=== PATIENT | male | born 1990 | race American Indian/Alaskan Native ===

== ENCOUNTER 2017-12-06 08:10 | Inpatient (IN) | payer MEDICAID, OTHER ==
--- NOTE | 2017-12-06 08:40 | C.PDOC ---
History Of Present Illness 27 year old male presents to ED requesting detox from heroin. Notes using heroin intravenously, last used 2 days ago. Pt also states that he tried to commit suicide last night by overdosing on unknown "pills". Otherwise, denies homicidal ideation, hallucinations, or any active physical complaints at this time. Time Seen by Provider: 12/06/17 08:15 Chief Complaint (Nursing): Substance Abuse History Per: Patient History/Exam Limitations: no limitations Onset/Duration Of Symptoms: Days Current Symptoms Are (Timing): Still Present Suicide/Self Injury Attempted (Context): Ingestion Severity: None Pain Scale Rating Of: 0 Associated Symptoms: Suicidal Thoughts Involuntary Hold By: None Recent travel outside of the [place]: No Additional History Per: Patient Past Medical History Reviewed: Historical Data, Nursing Documentation, Vital Signs Vital Signs: Last Vital Signs Temp 98.4 F 12/06/17 10:49 Pulse 69 12/06/17 10:49 Resp 17 12/06/17 12:08 BP 132/81 12/06/17 10:49 Pulse Ox 100 12/06/17 10:49 - Medical History PMH: No Chronic Diseases Family History: States: Unknown Family Hx - Social History Hx Alcohol Use: No Hx Substance Use: Yes (Snorts Heroin) Review Of Systems Except As Marked, All Systems Reviewed And Found Negative. Constitutional: Negative for: Fever, Chills Cardiovascular: Negative for: Chest Pain, Palpitations Respiratory: Negative for: Cough, Shortness of Breath Psych: Positive for: Suicidal ideation Physical Exam - Physical Exam Appears: Non-toxic, No Acute Distress Skin: Normal Color, Warm, Dry Head: Atraumatic, Normacephalic Eye(s): bilateral: Normal Inspection Oral Mucosa: Moist Cardiovascular: Rhythm Regular, No Murmur Respiratory: Normal Breath Sounds, No Rales, No Rhonchi, No Wheezing Gastrointestinal/Abdominal: Soft, No Tenderness Extremity: Normal ROM, No Deformity Neurological/Psych: Oriented x3, Normal Speech ED Course And Treatment - Laboratory Results Result Diagrams: 12/06/17 09:16 12/06/17 09:16 Lab Interpretation: Normal O2 Sat by Pulse Oximetry: 98 Pulse Ox Interpretation: Normal Progress Note: Case discussed and patient evaluated by child and family services worker who requests admission to Dr Carreon Reassessment Condition: Unchanged Medical Decision Making Medical Decision Making: Plan: Blood work Urinalysis Disposition Discussed With : Cullen Carreon Doctor Will See Patient In The: Hospital - Disposition Disposition: HOSPITALIZED Disposition Time: 13:00 Condition: STABLE - POA Present On Arrival: None - Clinical Impression Clinical Impression: Depression, Drug abuse - PA / HAND TWISTER / Resident Statement MD/DO has reviewed & agrees with the documentation as recorded. - Scribe Statement The provider has reviewed the documentation as recorded by the Scribe Schuyler Cali All medical record entries made by the Scribe were at my direction and personally dictated by me. I have reviewed the chart and agree that the record accurately reflects my personal performance of the history, physical exam, medical decision making, and the department course for this patient. I have also personally directed, reviewed, and agree with the discharge instructions and disposition. Decision To Admit - Pt Status Changed To: Hospital Disposition Of: Inpatient - Admit Certification Admit to Inpatient:: After my assessment, the patient will require hospitalization for at least two midnights. This is because of the severity of symptoms shown, intensity of services needed, and/or the medical risk in this patient being treated as an outpatient. - InPatient: Physician Admission Certification: I certify that this patient requires 2 or more midnights of care for the following reason:: Depression - . Bed Request Type: Psychiatry Admitting Physician: Cullen Carreon Patient Diagnosis: Depression
[2017-12-06 09:23] LABS: BASO % 0.6 % (0.0-2.0); EOS # 0.1 K/uL (0.0-0.7); EOS % 1.5 % (0.0-4.0); LYMPH % 18.8 % (20.0-40.0); MEAN CELL VOLUME 92.7 fL (80.0-94.0); MEAN CORPUSCULAR HEMOGLOBIN 32.7 pg (27.0-31.0); MEAN CORPUSCULAR HGB CONC 35.3 g/dL (33.0-37.0); MONO # 0.4 K/uL (0.0-0.8); MONO % 7.6 % (0.0-10.0); NEUT % 71.5 % (50.0-75.0); RBC 4.59 Mil/uL (4.40-5.90); RED CELL DISTRIBUTION WIDTH 13.7 % (11.5-14.5); WHITE BLOOD COUNT 5.6 K/uL (4.8-10.8)
[2017-12-06 09:38] LABS: SQUAMOUS EPITHIAL < 1 /hpf (0-5); URINE BACTERIA OCC (<OCC); URINE BILIRUBIN NEGATIVE (NEGATIVE); URINE BLOOD NEGATIVE (NEGATIVE); URINE CLARITY Clear (Clear); URINE COLOR Yellow (YELLOW); URINE GLUCOSE (UA) NORMAL (Normal); URINE LEUKOCYTE ESTERASE NEG Leu/uL (Negative); URINE NITRATE NEGATIVE (NEGATIVE); URINE PROTEIN NEGATIVE (NEGATIVE); URINE UROBILINOGEN NORMAL mg/dL (0.2-1.0)
[2017-12-06 09:41] LABS: ALB/GLOB RATIO 1.3 (1.0-2.1); ALBUMIN 4.8 g/dL (3.5-5.0); ALT/SGPT 34 U/L (21-72); AST/SGOT 30 U/L (17-59); BLOOD UREA NITROGEN 9 mg/dL (9-20); CALCIUM 9.9 mg/dl (8.6-10.4); GFR AFRICAN-AMERICAN > 60; GFR NON-AFRICAN AMERICAN > 60
[2017-12-06 09:50] LABS: BARBITURATES, UR NEGATIVE (NEGATIVE); BENZODIAZEPINES, UR NEGATIVE (NEGATIVE); PHENCYCLIDINE, UR NEGATIVE (NEGATIVE)
[2017-12-06 09:55] LABS: OPIATES, UR POSITIVE (NEGATIVE)
--- NOTE | 2017-12-06 12:04 | PCM.BM ---
<Pam Fang - Last Filed: 12/06/17 12:00> Treatment Plan Problems - Problems identified on initial assessmt Depression Date Initiated: 12/06/17 Time Initiated: 12:01 Assessment reference: NA Status: Active Substance Abuse Date Initiated: 12/06/17 Time Initiated: 12:01 Assessment reference: NA Status: Active Treatment assets and liabiliti Patient Assests: adapts well, cooperative, ADL independent, physically healthy, negotiates basic needs, cognitively intact, good interpersonal skills Patient Liabilities: live alone (lives with mother now Homeless), financial problems, poor support system, substance abuse (Heroin 2-3 bunble snorts and THC ), medical problems (None) - Milieu Protocol Maintain good personal hygiene: daily Encourage regular showers, daily Remind patient to perform daily oral care, other Assist patient to perform ADL's (Self) Conduct patient checks and document Observation sheet: Q15 minutes (For safety) Maintain personal safety: every shift Educate patient to report safety concerns to staff, every shift Monitor environment for contraband/sharps Medication safety: Monitor for expected outcome, potential side effects: every shift, Assess barriers to learning: every shift, Assess readiness for medication education: every shift <Virgie Sanchez - Last Filed: 12/08/17 11:04> Family Contact Family involvement: Famliy/SO not involved - Goals for Treatment Patient goals for treatment: "I want to go to rehab." Discharge/Continuing Care - Education Needs Education Needs: Patient Medication, Patient Coping Skills - Discharge Discharge Criteria: Tolerates medication w/o severe side effects, Reduction of target symptoms Discharge to:: Substance Abuse Rehab - Treatment Team Participation Discussed with Family/SO: No Was Patient/Family/SO present at Treatment Team Meeting: Yes
[2017-12-06] MEDS ORDERED: Aluminum Hydroxide/Magnesium Hydroxide Susp (30 mL) PO PRN (20:54)
--- NOTE | 2017-12-06 20:54 | PCM.PSYCH ---
Initial Psychiatric Evaluation - Initial Psychiatric Evaluation Type of Admission: Voluntary Legal Status: Capacity Chief Complaint (in patient's own words): I was feeling depressed and suicidal.' History of Present Illness and Precipitating Events: Patient is a 27-year-old -[place] male, who came to the ED with depressed mood and suicidal ideation with plan to overdose on pills. As per the ED charts, pt stated that ''two days ago he intentionally overdosed on 10 bags of heroin and yesterday ingested 10 sleeping pills and two shots of alcohol, both suicide attempts. Patient reported after ingesting sleeping pills and alcohol he woke up this morning and brought himself to the ED. On a daily basis he reported using 2-3 bundles the past 4 months both intravenously and intranasally. He reported drinking two small bottles of alcohol weekly. He had one prior detox admission at [facility] (formally known as [facility]) in 2017 with 4 months of sobriety. He identified hanging with the wrong people as his trigger. While sober, he was living with his mother, however, after replapsing she kicked him out and hes been homeless since. Patient denied psych history and psych hospitalizations. He reported two prior arrests in 2017 for theft and possession of Xanax. '' Patient remained isolated, withdrawn and depressed. He reports feelings of hopelessness and helplessness and remained tearful throughout the interview. He reports withdrawal symptoms from heroin including back and joint pains, nausea and sweating. He reports current suicidal ideation but denies any homicidal ideation. He denies any AVH or any delusions. PMH: None reported Current Medications: Active Medications Generic Name Dose Route Start Last Admin Trade Name Freq PRN Reason Stop Dose Admin Benztropine Mesylate 2 mg 12/06/17 11:03 Cogentin PO Q6 PRN Extra Pyramidal Symptoms Haloperidol 5 mg 12/06/17 11:03 Haldol PO Q8 PRN Moderate Agitation Lorazepam 1 mg 12/06/17 11:03 12/06/17 17:10 Ativan PO 1 mg Q6 PRN Administration Anxiety Pneumococcal Polyvalent Vaccine 0.5 ml 12/09/17 10:00 Pneumovax 23 Vaccine IM 12/09/17 10:01 .ONCE ONE Trazodone HCl 50 mg 12/06/17 22:00 Desyrel PO HS [facility] Past Psychiatric History - Past Psychiatric History Previous Treatment History: None Pertinent Medical Hx (Current Medical&Sleep Prob, Allergies): Allergies Allergy/AdvReac Type Severity Reaction Status Date / Time No Known Allergies Allergy Verified 12/06/17 08:19 No Known Home Med 12/06/17 Review of Systems - Review of Systems All systems: reviewed and no additional remarkable complaints except - Psychiatric Psychiatric: Anxiety, Irritability, Suicidal Ideation Mental Status Examination - Personal Presentation Personal Presentation: Looks stated age - Affect Affect: Constricted, Depressed - Motor Activity Motor Activity: Calm - Reliability in Providing Information Reliability in Providing Information: Fair - Speech Speech: Organized - Mood Mood: Depressed, Anxious - Formal Thought Process Formal Thought Process: No Impairment - Obsessions/Compulsions Obsessions: No Compulsions: No - Cognitive Functions Orientation: Person, Place, Situation, Time Sensorium: Alert Attention/Concentration: Attentive Abstract Thinking: [place] Estimate of Intelligence: Below average Judgement: Imparied, as evidence by: Poor judgement, Imparied, as evidence by: Lack of insight into illness - Risk Risk: Suicidal, Withdrawal, Diminished functioning - Limitations Limitations: Living alone DSM 5 DX - DSM 5 DSM 5 Diagnosis: Major depressive disorder recurrent severe without psychotic features Opioid use disorder severe Opioid withdrawal Alcohol use disorder moderate - Recommended/Plan of Treatment Treatment Recommendations and Plan of Treatment: Major depressive disorder recurrent severe without psychotic features -CBT -Psychoeducation -Supportive therapy, group therapy, individual therapy -Neurontin 100 mg by mouth 3 times a day -Trazodone 50 mg by mouth daily at bedtime -Celexa will be started and dose will be maximized Opioid use disorder severe -CBT -Psychoeducation -Supportive therapy, individual therapy -Use [place] for abstinence Opioid withdrawal -CBT -Psychoeducation -Supportive therapy, individual therapy -Clonidine when necessary -Start methadone taper -Start prn meds Alcohol use disorder moderate -Monitor signs and symptoms -Use [place] for abstinence - Smoking Cessation Smoking Cessation Initiated: No
--- NOTE | 2017-12-07 11:50 | PCM.PYCHPN ---
Psychiatric Progress Note - Psychiatric Progress Note Patient seen today, length of contact: 15 min Medication Change: Yes Medical Record Reviewed: Yes Mental Status Examination - Cognitive Function Orientation: Person, Place, Situation, Time Memory: Intact Attention: WNL Concentration: Poor Association: WNL Fund of Knowledge: Poor - Mood Mood: Depressed, Anxious - Affect Affect: Constricted - Speech Speech: Soft - Formal Thought Process Formal Thought Process: No Impairment - Suicidal Ideation Suicidal Ideation: No - Homicidal Ideation Homicidal Ideation: No Goal/Treatment Plan - Goal/Treatment Plan Need for Continued Stay: Severe depression anxiety, Severe functional impairment Progress Toward Problem(s) and Goals/Treatment Plan: Major depressive disorder recurrent severe without psychotic features -CBT -Psychoeducation -Supportive therapy, group therapy, individual therapy -Neurontin 100 mg by mouth 3 times a day -Trazodone 50 mg by mouth daily at bedtime -Celexa will be started and dose will be maximized Opioid use disorder severe -CBT -Psychoeducation -Supportive therapy, individual therapy -Use [place] for abstinence Opioid withdrawal -CBT -Psychoeducation -Supportive therapy, individual therapy -Clonidine when necessary -Start methadone taper -Start prn meds Alcohol use disorder moderate -Monitor signs and symptoms -Use [place] for abstinence
--- NOTE | 2017-12-08 11:04 | PCM.PYCHPN ---
Psychiatric Progress Note - Psychiatric Progress Note Patient seen today, length of contact: 15 min Medication Change: Yes Medical Record Reviewed: Yes Mental Status Examination - Cognitive Function Orientation: Person, Place, Situation, Time Memory: Intact Attention: WNL Concentration: Poor Association: WNL Fund of Knowledge: Poor - Mood Mood: Depressed, Anxious - Affect Affect: Constricted - Speech Speech: Soft - Formal Thought Process Formal Thought Process: No Impairment - Suicidal Ideation Suicidal Ideation: No - Homicidal Ideation Homicidal Ideation: No Goal/Treatment Plan - Goal/Treatment Plan Need for Continued Stay: Severe depression anxiety, Severe functional impairment Progress Toward Problem(s) and Goals/Treatment Plan: Major depressive disorder recurrent severe without psychotic features -CBT -Psychoeducation -Supportive therapy, group therapy, individual therapy -Neurontin 100 mg by mouth 3 times a day -Trazodone 50 mg by mouth daily at bedtime -Celexa will be started and dose will be maximized Opioid use disorder severe -CBT -Psychoeducation -Supportive therapy, individual therapy -Use [place] for abstinence Opioid withdrawal -CBT -Psychoeducation -Supportive therapy, individual therapy -Clonidine when necessary -Methadone taper -prn meds Alcohol use disorder moderate -Monitor signs and symptoms -Use [place] for abstinence - Smoking Cessation Smoking Cessation Initiated: No
[2017-12-09 06:10] VITALS: O2SAT 100
[2017-12-09] MEDS ORDERED: Pneumococcal 23-Valent Vaccine IM ONE (10:00)
[2017-12-09] MEDS ORDERED: Influenza Vaccine 60 mcg/0.5 mL SYR (4YR UP) IM ONE (10:00)
[2017-12-10 06:41] VITALS: RESP 18; TEMP 97.7
--- NOTE | 2017-12-10 13:00 | RAD ---
HISTORY: for REHAB COMPARISON: No prior. FINDINGS: LUNGS: No active pulmonary disease. PLEURA: No significant pleural effusion identified, no pneumothorax apparent. CARDIOVASCULAR: Normal. OSSEOUS STRUCTURES: No significant abnormalities. VISUALIZED UPPER ABDOMEN: Normal. OTHER FINDINGS: None. IMPRESSION: No active disease.
--- NOTE | 2017-12-10 16:43 | PCM.PYCHPN ---
Psychiatric Progress Note - Psychiatric Progress Note Patient seen today, length of contact: 15 min Patient Chief Complaint: I was feeling depressed and suicidal.' Problems Identified/Issues Discussed: Patient seen and evaluated, chart reviewed and discussed with the nurse. Today patient reports some improvement in his irritability, anxiety and agitation. He reports some improvement in his mood, however he remained isolated and withdrawn. He reports improvement in the withdrawal symptoms but still reports anxiety, headaches and sweating. He is taking medications and denies any side effects. He is looking forward to go to inpatient rehabilitation after discharge and he met with the social service director. Symptoms are improving but she needs more time for stabilization. Supportive therapy and psychoeducation were given. Medication Change: Yes (Methadone taper, increase Celexa) Medical Record Reviewed: Yes Mental Status Examination - Cognitive Function Orientation: Person, Place, Situation, Time Memory: Intact Attention: WNL Concentration: Poor Association: WNL Fund of Knowledge: Poor - Mood Mood: Depressed, Anxious - Affect Affect: Constricted - Speech Speech: Soft - Formal Thought Process Formal Thought Process: No Impairment - Suicidal Ideation Suicidal Ideation: No - Homicidal Ideation Homicidal Ideation: No Goal/Treatment Plan - Goal/Treatment Plan Need for Continued Stay: Severe depression anxiety, Severe functional impairment Progress Toward Problem(s) and Goals/Treatment Plan: Major depressive disorder recurrent severe without psychotic features -CBT -Psychoeducation -Supportive therapy, group therapy, individual therapy -Neurontin 100 mg by mouth 3 times a day -Trazodone 50 mg by mouth daily at bedtime -Celexa 20 mg daily Opioid use disorder severe -CBT -Psychoeducation -Supportive therapy, individual therapy -Use [place] for abstinence Opioid withdrawal -CBT -Psychoeducation -Supportive therapy, individual therapy -Clonidine when necessary -Methadone taper -prn meds Alcohol use disorder moderate -Monitor signs and symptoms -Use [place] for abstinence - Smoking Cessation Smoking Cessation Initiated: No
--- NOTE | 2017-12-10 17:05 | PCM.PYCHPN ---
Psychiatric Progress Note - Psychiatric Progress Note Patient seen today, length of contact: 15 min Patient Chief Complaint: I was feeling depressed and suicidal.' Problems Identified/Issues Discussed: Patient seen and evaluated, chart reviewed and discussed with the nurse. Today patient reports some improvement in his irritability, anxiety and agitation. He reports some improvement in his mood, however he remained isolated and withdrawn. He reports improvement in the withdrawal symptoms but still reports anxiety, headaches and sweating. He is taking medications and denies any side effects. He is looking forward to go to inpatient rehabilitation after discharge and he met with the social media senior associate. Symptoms are improving but she needs more time for stabilization. Supportive therapy and psychoeducation were given. Medication Change: Yes (Methadone taper, increase Neurontin) Medical Record Reviewed: Yes Mental Status Examination - Cognitive Function Orientation: Person, Place, Situation, Time Memory: Intact Attention: WNL Concentration: Poor Association: WNL Fund of Knowledge: Poor - Mood Mood: Depressed, Anxious - Affect Affect: Constricted - Speech Speech: Soft - Formal Thought Process Formal Thought Process: No Impairment - Suicidal Ideation Suicidal Ideation: No - Homicidal Ideation Homicidal Ideation: No Goal/Treatment Plan - Goal/Treatment Plan Need for Continued Stay: Severe depression anxiety, Severe functional impairment Progress Toward Problem(s) and Goals/Treatment Plan: Major depressive disorder recurrent severe without psychotic features -CBT -Psychoeducation -Supportive therapy, group therapy, individual therapy -Neurontin 300 mg by mouth 3 times a day -Trazodone 50 mg by mouth daily at bedtime -Celexa 20 mg daily Opioid use disorder severe -CBT -Psychoeducation -Supportive therapy, individual therapy -Use [place] for abstinence Opioid withdrawal -CBT -Psychoeducation -Supportive therapy, individual therapy -Clonidine when necessary -Methadone taper -prn meds Alcohol use disorder moderate -Monitor signs and symptoms -Use [place] for abstinence
--- NOTE | 2017-12-11 12:31 | PCM.PYCHDC ---
Mental Status Examination - Mental Status Examination Orientation: Person, Place, Situation, Time Memory: Intact Mood: Neutral Affect: Constricted Speech: Soft Attention: WNL Concentration: WNL Association: WNL Fund of Knowledge: WNL Formal Thought Process: No Impairment Description of patient's judgement and insight: good, fair Psychotic Thoughts and Behaviors: denies any AVH Suicidal Ideation: No Current Homicidal Ideation?: No Discharge Summary - Discharge Note Reason for Hospitalization: Patient is a 27-year-old -[place] male, who came to the ED with depressed mood and suicidal ideation with plan to overdose on pills. As per the ED charts, pt stated that ''two days ago he intentionally overdosed on 10 bags of heroin and yesterday ingested 10 sleeping pills and two shots of alcohol, both suicide attempts. Patient reported after ingesting sleeping pills and alcohol he woke up this morning and brought himself to the ED. On a daily basis he reported using 2-3 bundles the past 4 months both intravenously and intranasally. He reported drinking two small bottles of alcohol weekly. He had one prior detox admission at [facility] (formally known as [facility]) in 2017 with 4 months of sobriety. He identified hanging with the wrong people as his trigger. While sober, he was living with his mother, however, after replapsing she kicked him out and hes been homeless since. Patient denied psych history and psych hospitalizations. He reported two prior arrests in 2017 for theft and possession of Xanax. '' Patient remained isolated, withdrawn and depressed. He reports feelings of hopelessness and helplessness and remained tearful throughout the interview. He reports withdrawal symptoms from heroin including back and joint pains, nausea and sweating. He reports current suicidal ideation but denies any homicidal ideation. He denies any AVH or any delusions. Consultations:: List each consultation separately and include: 1. Reason for request. 2. Findings. 3. Follow-up Summary of Hospital Course include:: 1. Description of specific treatment plan utilized for patients during their course of treatmen. 2. Summarize the time- course for resolution of acute symptoms and/or regressed behaviors. 3. Describe issues identified and worked on during hospitalization. 4. Describe medication utilized. 5. Describe medical problems identified and treated. 6. Reassessment of suicide risk Summary of Hospital Course: Patient is a 27-year-old -[place] male, who came to the ED with depressed mood and suicidal ideation with plan to overdose on pills. As per the ED charts, pt stated that ''two days ago he intentionally overdosed on 10 bags of heroin and yesterday ingested 10 sleeping pills and two shots of alcohol, both suicide attempts. Patient reported after ingesting sleeping pills and alcohol he woke up this morning and brought himself to the ED. On a daily basis he reported using 2-3 bundles the past 4 months both intravenously and intranasally. He reported drinking two small bottles of alcohol weekly. He had one prior detox admission at [facility] (formally known as [facility]) in 2017 with 4 months of sobriety. He identified hanging with the wrong people as his trigger. While sober, he was living with his mother, however, after replapsing she kicked him out and hes been homeless since. Patient denied psych history and psych hospitalizations. He reported two prior arrests in 2017 for theft and possession of Xanax. '' Patient remained isolated, withdrawn and depressed. He reports feelings of hopelessness and helplessness and remained tearful throughout the interview. He reports withdrawal symptoms from heroin including back and joint pains, nausea and sweating. He reports current suicidal ideation but denies any homicidal ideation. He denies any AVH or any delusions. PMH: None reported - Final Diagnosis (DSM 5) Condition upon Discharge: STABLE Disposition: HOME/ ROUTINE Follow-up Treatment Plan: Major depressive disorder recurrent severe without psychotic features -CBT -Psychoeducation -Supportive therapy, group therapy, individual therapy -Neurontin 300 mg by mouth 3 times a day -Trazodone 50 mg by mouth daily at bedtime -Celexa 20 mg daily Opioid use disorder severe -CBT -Psychoeducation -Supportive therapy, individual therapy -Use [place] for abstinence Opioid withdrawal -CBT -Psychoeducation -Supportive therapy, individual therapy -Clonidine when necessary -Methadone taper -prn meds Alcohol use disorder moderate -Monitor signs and symptoms -Use [place] for abstinence Prescriptions/Medication Reconciliation: Citalopram [celEXA] 20 mg PO DAILY #30 tab Gabapentin [Neurontin] 300 mg PO BID #60 cap traZODone [Desyrel] 50 mg PO HS #30 tab
[2017-12-11 16:02] VITALS: BP 122/83; PULSE 77
== END 2017-12-11 17:30 | disposition home or self-care (01) | DRG 430 ==
LOC: C.ER 08:10 → C.5E 10:11
PROVIDERS: ADMIT Psychiatry & Neurology Psychiatry; ATTEND Psychiatry & Neurology Psychiatry
PROC: GZ3ZZZZ Medication Management (ICD-10-PCS; principal; 2017-12-06)
PROC: GZHZZZZ Group Psychotherapy (ICD-10-PCS; 2017-12-06)
PROC: GZ56ZZZ Individual Psychotherapy, Supportive (ICD-10-PCS; 2017-12-06)
PROC: HZ2ZZZZ Detoxification Services for Substance Abuse Treatment (ICD-10-PCS; 2017-12-06)
PROC: HZ59ZZZ Individual Psychotherapy for Substance Abuse Treatment, Supportive (ICD-10-PCS; 2017-12-06)
DX: F33.2 Major depressive disorder, recurrent severe without psychotic features (principal); F11.23 Opioid dependence with withdrawal; F10.10 Alcohol abuse, uncomplicated; F41.9 Anxiety disorder, unspecified; T45.0X2A Poisoning by antiallergic and antiemetic drugs, intentional self-harm, initial encounter; T51.0X2A Toxic effect of ethanol, intentional self-harm, initial encounter; Y92.9 Unspecified place or not applicable; Z59.0 Homelessness

== ENCOUNTER 2018-05-12 20:51 | Emergency (ER) | payer MEDICAID, OTHER ==
[2018-05-12 21:01] VITALS: BP 132/88; PULSE 78; RESP 18; TEMP 98.8; O2SAT 99
--- NOTE | 2018-05-12 22:14 | C.PDOC ---
History Of Present Illness Patient presents to the ER requesting detox. Patient told there are no bed available, he was given information of other detox sites in the area. Patient refused to be examined and left the ER. Time Seen by Provider: 05/12/18 22:13 Chief Complaint (Nursing): Substance Abuse History Per: Patient History/Exam Limitations: no limitations Onset/Duration Of Symptoms: Hrs Current Symptoms Are (Timing): Still Present Suicide/Self Injury Attempted (Context): None Modifying Factor(s): None Severity: None Pain Scale Rating Of: 0 Associated Symptoms: denies: Depression, Suicidal Thoughts Involuntary Hold By: None Recent travel outside of the [place]: No Past Medical History Reviewed: Historical Data, Nursing Documentation, Vital Signs Vital Signs: Last Vital Signs Temp 98.8 F 05/12/18 20:57 Pulse 78 05/12/18 20:57 Resp 18 05/12/18 20:57 BP 132/88 05/12/18 20:57 Pulse Ox 99 05/12/18 22:14 - Medical History PMH: Depression - [facility] DETOXIFICATION SERVICES FOR SUBSTANCE ABUSE TREATMENT (12/06/17) GROUP PSYCHOTHERAPY (12/06/17) INDIV PSYCHOTHERAPY FOR SUBSTANCE ABUSE TREATMENT, SUPPORT (12/06/17) INDIVIDUAL PSYCHOTHERAPY, SUPPORTIVE (12/06/17) MEDICATION MANAGEMENT (12/06/17) Family History: States: No Known Family Hx - Social History Hx Alcohol Use: No Hx Substance Use: Yes (HEROIN SNORT) - Immunization History Hx Tetanus Toxoid Vaccination: Yes Hx Influenza Vaccination: No Hx Pneumococcal Vaccination: No ED Course And Treatment O2 Sat by Pulse Oximetry: 99 (room air) Pulse Ox Interpretation: Normal Disposition Counseled Patient/Family Regarding: Studies Performed, Diagnosis, Need For Followup - Disposition Disposition: ELOPEMENT - ER ONLY Disposition Time: 22:14 Condition: FAIR Instructions: Alcohol Abuse and Alcoholism (DC) Forms: [employer] (Italian) - Clinical Impression Clinical Impression: Alcohol abuse - Scribe Statement The provider has reviewed the documentation as recorded by the Scribdayna Alston All medical record entries made by the Scribe were at my direction and personally dictated by me. I have reviewed the chart and agree that the record accurately reflects my personal performance of the history, physical exam, medical decision making, and the department course for this patient. I have also personally directed, reviewed, and agree with the discharge instructions and disposition.
== END 2018-05-12 22:13 | disposition left against medical advice (07) ==
LOC: SUPCPDRO 20:51 → C.ER 20:51
DX: F10.10 Alcohol abuse, uncomplicated (principal)

== ENCOUNTER 2018-05-31 13:57 | Inpatient (IN) | payer MEDICAID, OTHER ==
[2018-05-31 14:48] LABS: BASO # 0.1 K/uL (0.0-0.2); BASO % 1.2 % (0.0-2.0); EOS # 0.1 K/uL (0.0-0.7); EOS % 0.9 % (0.0-4.0); HEMOGLOBIN 15.8 g/dL (12.0-18.0); LYMPH # 1.6 K/uL (1.0-4.3); LYMPH % 24.3 % (20.0-40.0); MEAN CELL VOLUME 92.4 fL (80.0-94.0); MEAN CORPUSCULAR HEMOGLOBIN 31.4 pg (27.0-31.0); MEAN PLATELET VOLUME 8.6 fL (7.2-11.7); MONO # 0.6 K/uL (0.0-0.8); MONO % 8.5 % (0.0-10.0); NEUT # 4.3 K/uL (1.8-7.0); NEUT % 65.1 % (50.0-75.0); RBC 5.03 Mil/uL (4.40-5.90); WHITE BLOOD COUNT 6.7 K/uL (4.8-10.8)
[2018-05-31 15:01] LABS: ACETAMINOPHEN < 10.0 ug/mL (10.0-30.0); ALB/GLOB RATIO 1.4 (1.0-2.1); ALBUMIN 5.2 g/dL (3.5-5.0); ALT/SGPT 36 U/L (21-72); AST/SGOT 36 U/L (17-59); BLOOD UREA NITROGEN 14 mg/dL (9-20); GFR AFRICAN-AMERICAN > 60; GFR NON-AFRICAN AMERICAN > 60; SALICYLATE < 1.0 mg/dL 1
[2018-05-31 15:15] LABS: URINE BILIRUBIN NEGATIVE (NEGATIVE); URINE BLOOD NEGATIVE (NEGATIVE); URINE CLARITY Clear (Clear); URINE COLOR Yellow (YELLOW); URINE GLUCOSE (UA) NORMAL (Normal); URINE LEUKOCYTE ESTERASE NEG Leu/uL (Negative); URINE PROTEIN NEGATIVE (NEGATIVE)
[2018-05-31 15:32] LABS: BARBITURATES, UR NEGATIVE (NEGATIVE); BENZODIAZEPINES, UR NEGATIVE (NEGATIVE)
[2018-05-31 15:59] LABS: OPIATES, UR POSITIVE (NEGATIVE); PHENCYCLIDINE, UR POSITIVE (NEGATIVE)
--- NOTE | 2018-05-31 16:30 | C.PDOC ---
Time Seen by Provider: 05/31/18 14:16 Chief Complaint (Nursing): Psychiatric Evaluation History Per: Patient Onset/Duration Of Symptoms: Days Current Symptoms Are (Timing): Still Present Suicide/Self Injury Attempted (Context): Other (Heroin IV) Modifying Factor(s): Narcotics Severity: Moderate Associated Symptoms: Depression, Suicidal Thoughts Additional History Per: Prior Records Past Medical History Reviewed: Historical Data, Nursing Documentation, Vital Signs Vital Signs: Last Vital Signs Temp 98.4 F 05/31/18 14:12 Pulse 83 05/31/18 14:12 Resp 18 05/31/18 14:12 BP 137/97 H 05/31/18 14:12 Pulse Ox 99 05/31/18 14:12 - Medical History PMH: Depression - [facility] Procedures DETOXIFICATION SERVICES FOR SUBSTANCE ABUSE TREATMENT (12/06/17) GROUP PSYCHOTHERAPY (12/06/17) INDIV PSYCHOTHERAPY FOR SUBSTANCE ABUSE TREATMENT, SUPPORT (12/06/17) INDIVIDUAL PSYCHOTHERAPY, SUPPORTIVE (12/06/17) MEDICATION MANAGEMENT (12/06/17) Family History: States: Unknown Family Hx - Social History Hx Alcohol Use: Yes Hx Substance Use: Yes (Heroin) - Immunization History Hx Tetanus Toxoid Vaccination: Yes Hx Influenza Vaccination: No Hx Pneumococcal Vaccination: No Review Of Systems Except As Marked, All Systems Reviewed And Found Negative. Constitutional: Negative for: Fever, Weakness Cardiovascular: Negative for: Chest Pain Respiratory: Negative for: Shortness of Breath Genitourinary: Negative for: Dysuria Musculoskeletal: Negative for: Neck Pain Skin: Negative for: Rash Neurological: Negative for: Weakness, Seizures Physical Exam - Physical Exam Appears: Non-toxic, No Acute Distress Skin: Normal Color, Warm, Dry, No Rash Head: Atraumatic, Normacephalic Eye(s): bilateral: PERRL, EOMI Neck: Normal ROM, Supple Cardiovascular: Rhythm Regular Respiratory: Normal Breath Sounds, No Accessory Muscle Use Gastrointestinal/Abdominal: Soft Extremity: Normal ROM, No Deformity Neurological/Psych: Oriented x3, Normal Motor, Normal Sensation ED Course And Treatment - Laboratory Results Result Diagrams: 05/31/18 14:41 05/31/18 14:41 Lab Interpretation: No Acute Changes O2 Sat by Pulse Oximetry: 99 Pulse Ox Interpretation: Normal Progress Note: Pt is medically stable for psychiatric admission. Disposition Counseled Patient/Family Regarding: Studies Performed, Diagnosis - Disposition Disposition: HOSPITALIZED Disposition Time: 16:30 Condition: STABLE - Clinical Impression Clinical Impression: Depression, Drug abuse Decision To Admit - Pt Status Changed To: Hospital Disposition Of: Inpatient - Admit Certification Admit to Inpatient:: After my assessment, the patient will require hospitalization for at least two midnights. This is because of the severity of symptoms shown, intensity of services needed, and/or the medical risk in this patient being treated as an outpatient. - InPatient: Physician Admission Certification: I certify that this patient requires 2 or more midnights of care for the following reason:: Psych. - . Bed Request Type: Psychiatry Admitting Physician: Bibiana Tomas Patient Diagnosis: Depression, Drug abuse
[2018-05-31 16:57] VITALS: O2SAT 100
--- NOTE | 2018-05-31 19:09 | PCM.BM ---
<Nicky Garrido - Last Filed: 05/31/18 19:08> Treatment Plan Problems - Problems identified on initial assessmt Depression Date Initiated: 05/31/18 Time Initiated: 17:10 Assessment reference: NA Status: Active Opiates Abuse Date Initiated: 05/31/18 Time Initiated: 17:10 Assessment reference: NA Status: Active Treatment assets and liabiliti Patient Assests: adapts well, cooperative, ADL independent, physically healthy, negotiates basic needs, cognitively intact, good interpersonal skills Patient Liabilities: financial problems, poor support system (Homeless), relationship conflicts, substance abuse (Heroin, PCP, Marijuana) - Milieu Protocol Maintain good personal hygiene: daily Encourage regular showers, daily Remind patient to perform daily oral care, every shift Assist patient to perform ADL's Conduct patient checks and document Observation sheet: Q15 minutes Maintain personal safety: every shift Educate patient to report safety concerns to staff, every shift Monitor environment for contraband/sharps Medication safety: Monitor for expected outcome, potential side effects: every shift, Assess barriers to learning: every shift, Assess readiness for medication education: every shift <Cullen Carreon - Last Filed: 06/01/18 11:47> - Diagnosis (1) Depression Status: Acute Interventions: 06/01/18 11:47 * Assess/adjust medications daily and /or as needed * See patient on an individual basis 7x/week to assess symptoms of depression * Monitor for side effects & effectiveness of medications * (2) Opioid abuse Status: Acute Interventions: 06/01/18 11:47 * Assess 7x/week regarding severity of withdrawal * Educate regarding risks, benefits, side effects and alternatives of medications * Use Motivational Interviewing for abstinence * Use CBT for relapse prevention * Medication management for withdrawal symptoms * Encourage medication assisted treatment * <Virgie Sanchez - Last Filed: 06/01/18 13:41> Family Contact Family involvement: Famliy/SO not involved - Goals for Treatment Patient goals for treatment: "I want to go to rehab." Discharge/Continuing Care - Education Needs Education Needs: Patient Medication, Patient Coping Skills, Patient Placement options, Patient Community resources - Discharge Discharge Criteria: Tolerates medication w/o severe side effects, No longer exhibiting s/s of withdrawal Discharge to:: Substance Abuse Rehab - Treatment Team Participation Discussed with Family/SO: No Was Patient/Family/SO present at Treatment Team Meeting: Yes
--- NOTE | 2018-06-01 09:56 | PCM.PSYCH ---
Initial Psychiatric Evaluation - Initial Psychiatric Evaluation Type of Admission: Voluntary Legal Status: Capacity Chief Complaint (in patient's own words): I came here to get help.' ' History of Present Illness and Precipitating Events: Patient was a 28 year old male referred to [facility] by his father after a failed suicide attempt. Patient was found on the bathroom floor by his father. Patient stated 'The drugs are putting people I care about through too much. It's bringing people into my problems". Patient reported feeling depressed (crying, angry, hopeless and tired of life) because he continues to hurt the people he loves. Patient identified thinking about the things that he has done and the people that he has hurt as the main precipitaing factor to suicide attempt. Patient reported 1 previous suicide attempt using alcohol and pills. Patient denied the presence of auditory, visual, tactile, gustatory or olfactory hallucinations at the time of interview. Patient denied current suicidal gestures, intent or plan. Patient denied homicidal ideations, attempts ,gesture, plan or intent at the time of interview. Patient reported fair sleep and poor appetite at the time of interview. Patient reported previous inpatient psychiatric admission to [facility] for depression. Patient reported history of anxiety in the maternal family of origin (Patient reported that his mother suffers from anxiety as he witnessed her have panic attacks). Patient reported history of substance abuse in the paternal family of origin (Patient reported that his father abused substance and now living a life of recovery). Patient reported history of previous substance abuse admissions. Patient noted treatment at [facility] about 3-4 months ago. Patient reported admission to [facility] about 3 years ago. Patient reported having poor coping skills and using substances to manage emotional problems. Patient reported history of previous arrest but denied period of incarcerations at the time of interview. Patient denied any history of homicidal ideations, attempts, gestures, plan or intent at the time of interview. Patient denied any history of causing destruction toward property at the time of interview. Current Medications: Active Medications Generic Name Dose Route Start Last Admin Trade Name Freq PRN Reason Stop Dose Admin Citalopram Hydrobromide 10 mg 06/01/18 10:00 06/01/18 09:52 Celexa PO 10 mg DAILY RYLIE Administration Clonidine HCl 0.1 mg 05/31/18 17:30 Catapres PO Q8 PRN COWS Score More or Equal to 5 Dicyclomine HCl 10 mg 05/31/18 17:28 Bentyl PO Q6 PRN Muscle spasm Hydroxyzine HCl 25 mg 05/31/18 17:28 Atarax PO Q6 PRN Anxiety Ibuprofen 600 mg 05/31/18 17:30 Motrin Tab PO TID PRN Pain, moderate (4-7) Ondansetron HCl 4 mg 05/31/18 17:28 Zofran Tab PO Q8 PRN Nausea/Vomiting Trazodone HCl 50 mg 05/31/18 17:35 Desyrel PO HS PRN Insomnia Past Psychiatric History - Past Psychiatric History Previous Treatment History: Inpatient Pertinent Medical Hx (Current Medical&Sleep Prob, Allergies): Allergies Allergy/AdvReac Type Severity Reaction Status Date / Time No Known Allergies Allergy Verified 05/31/18 14:15 No Known Home Med 05/31/18 Review of Systems - Review of Systems All systems: reviewed and no additional remarkable complaints except - Psychiatric Psychiatric: Anxiety, Depression, Irritability, Suicidal Ideation Mental Status Examination - Personal Presentation Personal Presentation: Looks stated age - Affect Affect: Constricted, Depressed - Motor Activity Motor Activity: Calm - Reliability in Providing Information Reliability in Providing Information: Good - Speech Speech: Disorganized - Mood Mood: Depressed, Anxious - Formal Thought Process Formal Thought Process: Loosening of associations - Obsessions/Compulsions Obsessions: No Compulsions: No - Cognitive Functions Orientation: Person, Place, Situation, Time Sensorium: Alert Attention/Concentration: Attentive Abstract Thinking: [place] Estimate of Intelligence: Below average Judgement: Imparied, as evidence by: Poor judgement, Imparied, as evidence by: Lack of insight into illness - Risk Risk: Suicidal, Withdrawal, Diminished functioning - Limitations Limitations: Living alone DSM 5 DX - DSM 5 DSM 5 Diagnosis: Major depressive disorder recurrent severe Opiate use disorder severe Opiate withdrawal PCP use disorder severe - Recommended/Plan of Treatment Treatment Recommendations and Plan of Treatment: Major depressive disorder recurrent severe Opiate use disorder severe Opiate withdrawal PCP use disorder severe CBT Psychoeducation Supportive therapy, group therapy Celexa 10 mg Trazodone 50 mg by mouth daily at bedtime Neurontin 100 mg PO TID Use [place] for abstinence Methadone taper
[2018-06-01] MEDS ORDERED: Vitamins A & D Oint UD Foilpak TOP PRN (20:42)
[2018-06-03 06:25] VITALS: RESP 18
--- NOTE | 2018-06-04 00:44 | PCM.PYCHPN ---
Psychiatric Progress Note - Psychiatric Progress Note Patient seen today, length of contact: 16 min Patient Chief Complaint: I ma feeling depressed Medication Change: Yes Medical Record Reviewed: Yes Mental Status Examination - Cognitive Function Orientation: Person, Place, Situation, Time Memory: Intact Attention: WNL Concentration: Poor Association: WNL Fund of Knowledge: Poor - Mood Mood: Depressed, Anxious - Affect Affect: Constricted, Depressed - Speech Speech: Soft - Formal Thought Process Formal Thought Process: No Impairment - Suicidal Ideation Suicidal Ideation: No - Homicidal Ideation Homicidal Ideation: No Goal/Treatment Plan - Goal/Treatment Plan Need for Continued Stay: Severe depression anxiety, Severe functional impairment Progress Toward Problem(s) and Goals/Treatment Plan: c Major depressive disorder recurrent severe Opiate use disorder severe Opiate withdrawal PCP use disorder severe CBT Psychoeducation Supportive therapy, group therapy Celexa 10 mg Trazodone 50 mg by mouth daily at bedtime Neurontin 100 mg PO TID Use [place] for abstinence Start methadone taper - Smoking Cessation Smoking Cessation Initiated: No
--- NOTE | 2018-06-04 00:45 | PCM.PYCHPN ---
Mental Status Examination - Cognitive Function Orientation: Person, Place, Situation, Time - Mood Mood: Depressed, Anxious - Affect Affect: Constricted, Depressed - Formal Thought Process Formal Thought Process: Loosening of associations - Homicidal Ideation Homicidal Ideation: No Goal/Treatment Plan - Goal/Treatment Plan Progress Toward Problem(s) and Goals/Treatment Plan: Major depressive disorder recurrent severe Opiate use disorder severe Opiate withdrawal PCP use disorder severe CBT Psychoeducation Supportive therapy, group therapy Celexa 10 mg Trazodone 50 mg by mouth daily at bedtime Neurontin 100 mg PO TID Use [place] for abstinence Methadone taper
[2018-06-04 06:25] VITALS: BP 104/69; PULSE 73; TEMP 97.9
--- NOTE | 2018-06-04 10:56 | PCM.PYCHDC ---
Mental Status Examination - Mental Status Examination Orientation: Person, Place, Situation, Time Memory: Intact Mood: Neutral Affect: Constricted Speech: Soft Attention: WNL Concentration: WNL Association: WNL Fund of Knowledge: WNL Formal Thought Process: No Impairment Description of patient's judgement and insight: good, fair Psychotic Thoughts and Behaviors: denies any AVH Suicidal Ideation: No Current Homicidal Ideation?: No Discharge Summary - Discharge Note Reason for Hospitalization: Patient was a 28 year old male referred to [facility] by his father after a failed suicide attempt. Patient was found on the bathroom floor by his father. Patient stated 'The drugs are putting people I care about through too much. It's bringing people into my problems". Patient reported feeling depressed (crying, angry, hopeless and tired of life) because he continues to hurt the people he loves. Patient identified thinking about the things that he has done and the people that he has hurt as the main precipitaing factor to suicide attempt. Patient reported 1 previous suicide attempt using alcohol and pills. Patient denied the presence of auditory, visual, tactile, gustatory or olfactory hallucinations at the time of interview. Patient denied current suicidal gestures, intent or plan. Patient denied homicidal ideations, attempts ,gesture, plan or intent at the time of interview. Patient reported fair sleep and poor appetite at the time of interview. Patient reported previous inpatient psychiatric admission to [facility] for depression. Patient reported history of anxiety in the maternal family of origin (Patient reported that his mother suffers from anxiety as he witnessed her have panic attacks). Patient reported history of substance abuse in the paternal family of origin (Patient reported that his father abused substance and now living a life of recovery). Patient reported history of previous substance abuse admissions. Patient noted treatment at [facility] about 3-4 months ago. Patient reported admission to [facility] about 3 years ago. Patient reported having poor coping skills and using substances to manage emotional problems. Patient reported history of previous arrest but denied period of incarcerations at the time of interview. Patient denied any history of homicidal ideations, attempts, gestures, plan or intent at the time of interview. Patient denied any history of causing destruction toward property at the time of interview. Consultations:: List each consultation separately and include: 1. Reason for request. 2. Findings. 3. Follow-up Summary of Hospital Course include:: 1. Description of specific treatment plan utilized for patients during their course of treatmen. 2. Summarize the time- course for resolution of acute symptoms and/or regressed behaviors. 3. Describe issues identified and worked on during hospitalization. 4. Describe medication utilized. 5. Describe medical problems identified and treated. 6. Reassessment of suicide risk Summary of Hospital Course: Patient was a 28 year old male referred to [facility] by his father after a failed suicide attempt. Patient was found on the bathroom floor by his father. Patient stated 'The drugs are putting people I care about through too much. It's bringing people into my problems". Patient reported feeling depressed (crying, angry, hopeless and tired of life) because he continues to hurt the people he loves. Patient identified thinking about the things that he has done and the people that he has hurt as the main precipitaing factor to suicide attempt. Patient reported 1 previous suicide attempt using alcohol and pills. Patient denied the presence of auditory, visual, tactile, gustatory or olfactory hallucinations at the time of interview. Patient denied current suicidal gestures, intent or plan. Patient denied homicidal ideations, attempts ,gesture, plan or intent at the time of interview. Patient reported fair sleep and poor appetite at the time of interview. Patient reported previous inpatient psychiatric admission to [facility] for depression. Patient reported history of anxiety in the maternal family of origin (Patient reported that his mother suffers from anxiety as he witnessed her have panic attacks). Patient reported history of substance abuse in the paternal family of origin (Patient reported that his father abused substance and now living a life of recovery). Patient reported history of previous substance abuse admissions. Patient noted treatment at [facility] about 3-4 months ago. Patient reported admission to [facility] about 3 years ago. Patient reported having poor coping skills and using substances to manage emotional problems. Patient reported history of previous arrest but denied period of incarcerations at the time of interview. Patient denied any history of homicidal ideations, attempts, gestures, plan or intent at the time of interview. Patient denied any history of causing destruction toward property at the time of interview. - Diagnosis (1) Depression Current Visit: Yes Status: Acute (2) Opioid abuse Current Visit: Yes Status: Acute - Final Diagnosis (DSM 5) Condition upon Discharge: STABLE DSM 5: Major depressive disorder recurrent severe Opiate use disorder severe Opiate withdrawal PCP use disorder severe Disposition: HOME/ ROUTINE Follow-up Treatment Plan: c Major depressive disorder recurrent severe Opiate use disorder severe Opiate withdrawal PCP use disorder severe CBT Psychoeducation Supportive therapy, group therapy Celexa 10 mg Trazodone 50 mg by mouth daily at bedtime Neurontin 100 mg PO TID Use [place] for abstinence Start methadone taper Prescriptions/Medication Reconciliation: traZODone [Desyrel] 50 mg PO HS PRN #30 tab PRN Reason: Insomnia
== END 2018-06-04 12:36 | disposition home or self-care (01) | DRG 430 ==
LOC: C.ER 13:57 → C.5E 16:30
PROVIDERS: ADMIT Psychiatry & Neurology Psychiatry; ATTEND Psychiatry & Neurology Psychiatry
PROC: GZHZZZZ Group Psychotherapy (ICD-10-PCS; principal; 2018-05-31)
PROC: HZ2ZZZZ Detoxification Services for Substance Abuse Treatment (ICD-10-PCS; 2018-05-31)
PROC: HZ52ZZZ Individual Psychotherapy for Substance Abuse Treatment, Cognitive-Behavioral (ICD-10-PCS; 2018-05-31)
PROC: HZ59ZZZ Individual Psychotherapy for Substance Abuse Treatment, Supportive (ICD-10-PCS; 2018-05-31)
PROC: HZ56ZZZ Individual Psychotherapy for Substance Abuse Treatment, Psychoeducation (ICD-10-PCS; 2018-05-31)
PROC: HZ42ZZZ Group Counseling for Substance Abuse Treatment, Cognitive-Behavioral (ICD-10-PCS; 2018-05-31)
PROC: HZ46ZZZ Group Counseling for Substance Abuse Treatment, Psychoeducation (ICD-10-PCS; 2018-05-31)
PROC: GZ58ZZZ Individual Psychotherapy, Cognitive-Behavioral (ICD-10-PCS; 2018-05-31)
PROC: GZ56ZZZ Individual Psychotherapy, Supportive (ICD-10-PCS; 2018-05-31)
DX: F33.2 Major depressive disorder, recurrent severe without psychotic features (principal); F11.23 Opioid dependence with withdrawal; F16.10 Hallucinogen abuse, uncomplicated; Z59.0 Homelessness

== ENCOUNTER 2018-07-13 06:38 | Inpatient (IN) | payer MEDICAID ==
--- NOTE | 2018-07-13 08:04 | C.PDOC ---
History Of Present Illness 28 y/o male with history of depression presents to ED for evaluation of suicidal ideation and depression since yesterday. Patient states he has thoughts of overdosing with heroin, which he both snorts and injects. Patient denies homicidal ideations, auditory or visual hallucinations. He has no current physical complaints. Time Seen by Provider: 07/13/18 07:05 Chief Complaint (Nursing): Psychiatric Evaluation History Per: Patient History/Exam Limitations: no limitations Onset/Duration Of Symptoms: Days Current Symptoms Are (Timing): Still Present Modifying Factor(s): Narcotics Associated Symptoms: Depression Past Medical History Reviewed: Historical Data, Nursing Documentation, Vital Signs Vital Signs: Last Vital Signs Temp 98.4 F 07/16/18 06:38 Pulse 69 07/16/18 06:38 Resp 18 07/16/18 06:38 BP 118/70 07/16/18 06:38 Pulse Ox 100 07/13/18 11:04 - Medical History PMH: Depression Surgical History: No Surg Hx - [facility] Procedures DETOXIFICATION SERVICES FOR SUBSTANCE ABUSE TREATMENT (05/31/18) GROUP NETWORK SECURITY ENGINEER FOR SUBSTANCE ABUSE TREATMENT, PSYCHOEDUCATION (05/31/18) GROUP NETWORK SECURITY ENGINEER FOR SUBSTANCE ABUSE, COGNITIVE BEHAVIORAL (05/31/18) GROUP PSYCHOTHERAPY (05/31/18) INDIV PSYCHOTHERAPY FOR SUBSTANCE ABUSE TREATMENT, SUPPORT (05/31/18) INDIV PSYCHOTHERAPY FOR SUBSTANCE ABUSE, COGNITIV BEHAVIORAL (05/31/18) INDIV PSYCHOTHERAPY FOR SUBSTANCE ABUSE, PSYCHOEDUCATION (05/31/18) INDIVIDUAL PSYCHOTHERAPY, COGNITIVE-BEHAVIORAL (05/31/18) INDIVIDUAL PSYCHOTHERAPY, SUPPORTIVE (05/31/18) MEDICATION MANAGEMENT (12/06/17) Family History: States: No Known Family Hx - Social History Hx Alcohol Use: Yes Hx Substance Use: Yes - Immunization History Hx Tetanus Toxoid Vaccination: Yes Hx Influenza Vaccination: No Hx Pneumococcal Vaccination: No Review Of Systems Constitutional: Negative for: Fever, Chills Cardiovascular: Negative for: Chest Pain Respiratory: Negative for: Cough, Shortness of Breath Gastrointestinal: Negative for: Nausea, Vomiting, Abdominal Pain, Diarrhea Psych: Positive for: Depression, Suicidal ideation. Negative for: Withdrawal Physical Exam - Physical Exam Appears: Well, Non-toxic, No Acute Distress, Other (Flat affect) Skin: Warm, Dry, No Rash Head: Normacephalic Eye(s): bilateral: Normal Inspection Oral Mucosa: Moist Neck: Supple Cardiovascular: Rhythm Regular Respiratory: Normal Breath Sounds, No Rales, No Rhonchi, No Wheezing Gastrointestinal/Abdominal: Normal Exam, Bowel Sounds, Soft, No Tenderness Neurological/Psych: Oriented x3 ED Course And Treatment - Laboratory Results Result Diagrams: 07/13/18 08:17 07/13/18 08:17 O2 Sat by Pulse Oximetry: 96 (RA) Pulse Ox Interpretation: Normal Progress Note: Blood work, UA, UDS ordered and reviewed. 9:25AM- Patient medically cleared. 10:14AM - Patient accepted for psychiatric admission by Dr. Carreon. Disposition - Disposition Disposition: HOSPITALIZED Disposition Time: 10:14 Condition: STABLE - Clinical Impression Clinical Impression: Depression - Scribe Statement The provider has reviewed the documentation as recorded by the Scribe May Byrd All medical record entries made by the Scribe were at my direction and personally dictated by me. I have reviewed the chart and agree that the record accurately reflects my personal performance of the history, physical exam, medical decision making, and the department course for this patient. I have also personally directed, reviewed, and agree with the discharge instructions and disposition. Decision To Admit - Pt Status Changed To: Hospital Disposition Of: Inpatient - Admit Certification Admit to Inpatient:: After my assessment, the patient will require hospitalization for at least two midnights. This is because of the severity of symptoms shown, intensity of services needed, and/or the medical risk in this patient being treated as an outpatient. - InPatient: Physician Admission Certification: I certify that this patient requires 2 or more midnights of care for the following reason:: see notes - . Bed Request Type: Psychiatry Admitting Physician: Cullen Carreon Patient Diagnosis: Depression
[2018-07-13 08:25] LABS: URINE BILIRUBIN NEGATIVE (NEGATIVE); URINE BLOOD NEGATIVE (NEGATIVE); URINE CLARITY Clear (Clear); URINE COLOR Yellow (YELLOW); URINE GLUCOSE (UA) NORMAL (Normal); URINE LEUKOCYTE ESTERASE NEG Leu/uL (Negative); URINE PROTEIN NEGATIVE (NEGATIVE); URINE UROBILINOGEN NORMAL mg/dL (0.2-1.0)
[2018-07-13 08:27] LABS: BASO # 0.1 K/uL (0.0-0.2); BASO % 0.9 % (0.0-2.0); EOS # 0.1 K/uL (0.0-0.7); HEMOGLOBIN 13.3 g/dL (12.0-18.0); LYMPH # 1.1 K/uL (1.0-4.3); MEAN CELL VOLUME 92.3 fL (80.0-94.0); MEAN CORPUSCULAR HGB CONC 34.7 g/dL (33.0-37.0); MONO # 0.5 K/uL (0.0-0.8); MONO % 7.1 % (0.0-10.0); NEUT # 5.7 K/uL (1.8-7.0); RBC 4.17 Mil/uL (4.40-5.90); WHITE BLOOD COUNT 7.5 K/uL (4.8-10.8)
[2018-07-13 08:39] LABS: ALB/GLOB RATIO 1.4 (1.0-2.1); ALBUMIN 4.1 g/dL (3.5-5.0); ALT/SGPT 63 U/L (21-72); AST/SGOT 49 U/L (17-59); BLOOD UREA NITROGEN 6 mg/dL (9-20); CALCIUM 9.7 mg/dl (8.6-10.4); GFR NON-AFRICAN AMERICAN > 60
[2018-07-13 09:17] LABS: BARBITURATES, UR NEGATIVE (NEGATIVE); BENZODIAZEPINES, UR NEGATIVE (NEGATIVE); PHENCYCLIDINE, UR NEGATIVE (NEGATIVE)
[2018-07-13 09:42] LABS: OPIATES, UR POSITIVE (NEGATIVE)
--- NOTE | 2018-07-13 11:49 | PCM.BM ---
<Temi Pettit - Last Filed: 07/13/18 11:47> Treatment Plan Problems - Problems identified on initial assessmt Suicidal Ideations Date Initiated: 07/13/18 Time Initiated: 11:48 Assessment reference: NA Status: Active Substance Abuse Date Initiated: 07/13/18 Time Initiated: 11:48 Assessment reference: NA Status: Active Treatment assets and liabiliti Patient Assests: adapts well, cooperative, ADL independent, physically healthy, negotiates basic needs, cognitively intact, good interpersonal skills Patient Liabilities: financial problems, poor support system, substance abuse - Milieu Protocol Maintain good personal hygiene: daily Encourage regular showers, daily Remind patient to perform daily oral care, daily Assist patient to perform ADL's Maintain personal safety: every shift Educate patient to report safety concerns to staff, every shift Monitor environment for contraband/sharps Medication safety: Monitor for expected outcome, potential side effects: every shift, Assess barriers to learning: every shift, Assess readiness for medication education: every shift <Cullen Carreon - Last Filed: 07/15/18 11:33> - Diagnosis (1) Depression Status: Acute Interventions: 07/15/18 11:33 * Assess/adjust medications daily and /or as needed * See patient on an individual basis 7x/week to assess symptoms of depression * Monitor for side effects & effectiveness of medications * (2) Drug abuse Status: Acute Interventions: 07/15/18 11:34 * Assess 7x/week regarding severity of withdrawal * Educate regarding risks, benefits, side effects and alternatives of medications * Use Motivational Interviewing for abstinence * Use CBT for relapse prevention * Medication management for withdrawal symptoms * Encourage medication assisted treatment * <Germaine Gandhi - Last Filed: 07/15/18 15:16> Family Contact Family involvement: Patient does not wish Family/SO involvement Family contact: Patient declines to allow family contact at present - Goals for Treatment Patient goals for treatment: "I want to be referred to [facility] rehab in ." Discharge/Continuing Care - Education Needs Education Needs: Patient Medication, Patient Diagnosis/Disease Process, Patient Coping Skills, Patient Placement options, Patient Community resources - Discharge Discharge Criteria: Free of Suicidal thoughts, Normal sleep pattern, Ability to care for self, No longer exhibiting s/s of withdrawal, Reduction of target symptoms Discharge to:: Substance Abuse Rehab - Treatment Team Participation Discussed with Family/SO: No Was Patient/Family/SO present at Treatment Team Meeting: Yes
[2018-07-13] MEDS ORDERED: Pneumococcal 23-Valent Vaccine IM ONE (12:57)
--- NOTE | 2018-07-14 09:36 | PCM.PSYCH ---
Initial Psychiatric Evaluation - Initial Psychiatric Evaluation Type of Admission: Voluntary Legal Status: Capacity Chief Complaint (in patient's own words): Mental health problems, suicidal thoughts, and depression History of Present Illness and Precipitating Events: Pt is 28 years old, single, no kids, homeless and no kids. Pt is presenting for depression with suicidal ideation. Pt states that the depression has been going on for over 15 years. When asked why, pt replies that things are not well in his life and he feels like giving up. Pt confirms anhedonia intermittently, feelings of guilt, concentration problems, decreased appetite. Pt states that his suicidal ideation has been going on for four days, and the cause of his SI is drug addiction and being homeless. This is his third time with thoughts of suicide. The first time was last year, when he overdosed on Ambien and EtOH, but went to the hospital afterwards. The second time was 5 months ago when he overdosed on heroin, but his father brought him to the hospital. Pt denies any recent manic episodes. Pt confirms distractibility, irritability, and sleeplessnes. Pt denies grandiosity, agitation, and talkativeness. Pt confirms anxiety. Pt denies recent panic attacks and paranoia Pt denies auditory, visual, or tactile hallucinations Pt smokes 2-3 cigarettes/day, 3 blunts/day of marijuana and 3-4 bags/day heroin. He denies using cocaine or any other drugs. Pt denies drinking EtOH. Psych Hx: Major depressive disorder diagnosed in 2017. Pt denies any traumatic history Family Psych Hx: Mother suffers from anxiety. Medical Hx: Unremarkable Legal Hx: Unremarkable Pt's plan is to go to treatment for heroin overuse. Past Psychiatric History - Past Psychiatric History Previous Treatment History: Inpatient Pertinent Medical Hx (Current Medical&Sleep Prob, Allergies): Allergies Allergy/AdvReac Type Severity Reaction Status Date / Time No Known Allergies Allergy Verified 07/13/18 06:48 Review of Systems - Review of Systems All systems: reviewed and no additional remarkable complaints except - Psychiatric Psychiatric: As Per HPI, Abnormal Sleep Pattern (Insomnia), Anhedonia ( Intermittently), Anxiety, Change in Appetite (Decreased), Depression, Difficulty Concentrating, Irritability, Suicidal Ideation, Other (Guilt, irritability, distractibility). absent: Auditory Hallucinations, Hallucinations , Paranoia, Visual Hallucinations, Tactile Hallucinations Mental Status Examination - Personal Presentation Personal Presentation: Looks stated age - Affect Affect: Constricted, Depressed - Motor Activity Motor Activity: Calm - Reliability in Providing Information Reliability in Providing Information: Good - Speech Speech: Organized - Mood Mood: Depressed, Anxious - Formal Thought Process Formal Thought Process: No Impairment - Obsessions/Compulsions Obsessions: No Compulsions: No - Cognitive Functions Orientation: Person, Place, Situation, Time Sensorium: Alert Attention/Concentration: Attentive Abstract Thinking: [place] Estimate of Intelligence: Below average Judgement: Imparied, as evidence by: Poor judgement, Imparied, as evidence by: Lack of insight into illness - Risk Risk: Suicidal, Diminished functioning - Limitations Limitations: Living alone DSM 5 DX - DSM 5 DSM 5 Diagnosis: Major Depressive Disorder, Severe, w/out psychosis Opioid use severe Opioid withdrawal Alcohol use dis moderate Cannabis use dis moderate - Recommended/Plan of Treatment Treatment Recommendations and Plan of Treatment: Major Depressive Disorder, Severe, w/out psychosis Opioid use severe Opioid withdrawal Alcohol use dis moderate Cannabis use dis moderate Start Desyrel and Catapres Paxil 20 mg Methaodne taper Ativan prn As need medications All risks, benefits and alternatives of the meds discussed, and the pt agreed and understood. Attend groups and activities Individual therapy daily Psychoeducation and support daily Encourage compliance with meds and after care Refer to outpatient program Teach healthy lifestyle methods, i.e. diet, exercise, meditation Smoking cessation and patch if needed - Smoking Cessation Smoking Cessation Initiated: No
[2018-07-14] MEDS ORDERED: Aluminum Hydroxide/Magnesium Hydroxide Susp (30 mL) PO PRN (10:46)
--- NOTE | 2018-07-16 00:43 | PCM.PYCHPN ---
Psychiatric Progress Note - Psychiatric Progress Note Patient seen today, length of contact: 26 min Patient Chief Complaint: I am feeling little better Medication Change: Yes Medical Record Reviewed: Yes Mental Status Examination - Cognitive Function Orientation: Person, Place, Situation, Time Memory: Intact Attention: WNL Concentration: Poor Association: WNL Fund of Knowledge: Poor - Mood Mood: Depressed, Anxious - Affect Affect: Constricted, Depressed - Speech Speech: Soft - Formal Thought Process Formal Thought Process: No Impairment - Suicidal Ideation Suicidal Ideation: No - Homicidal Ideation Homicidal Ideation: No Goal/Treatment Plan - Goal/Treatment Plan Need for Continued Stay: Severe depression anxiety, Severe functional impairment Progress Toward Problem(s) and Goals/Treatment Plan: Major Depressive Disorder, Severe, w/out psychosis Opioid use severe Opioid withdrawal Alcohol use dis moderate Cannabis use dis moderate Desyrel and Catapres Paxil 20 mg Methaodne taper Ativan prn As need medications All risks, benefits and alternatives of the meds discussed, and the pt agreed and understood. Attend groups and activities Individual therapy daily Psychoeducation and support daily Encourage compliance with meds and after care Refer to outpatient program Teach healthy lifestyle methods, i.e. diet, exercise, meditation Smoking cessation and patch if needed - Smoking Cessation Smoking Cessation Initiated: No
[2018-07-16 06:38] VITALS: RESP 18
[2018-07-16 09:46] VITALS: O2SAT 96
[2018-07-17 06:54] VITALS: BP 113/73; PULSE 60; TEMP 97.9
--- NOTE | 2018-07-17 10:40 | PCM.PYCHDC ---
Mental Status Examination - Mental Status Examination Orientation: Person, Place, Situation, Time Memory: Intact Mood: Neutral Affect: Constricted Speech: Soft Attention: WNL Concentration: WNL Association: WNL Fund of Knowledge: WNL Formal Thought Process: No Impairment Description of patient's judgement and insight: good, fair Psychotic Thoughts and Behaviors: denies any AVH Suicidal Ideation: No Current Homicidal Ideation?: No Discharge Summary - Discharge Note Reason for Hospitalization: Pt is 28 years old, single, no kids, homeless and no kids. Pt is presenting for depression with suicidal ideation. Pt states that the depression has been going on for over 15 years. When asked why, pt replies that things are not well in his life and he feels like giving up. Pt confirms anhedonia intermittently, feelings of guilt, concentration problems, decreased appetite. Pt states that his suicidal ideation has been going on for four days, and the cause of his SI is drug addiction and being homeless. This is his third time with thoughts of suicide. The first time was last year, when he overdosed on Ambien and EtOH, but went to the hospital afterwards. The second time was 5 months ago when he overdosed on heroin, but his father brought him to the hospital. Pt denies any recent manic episodes. Pt confirms distractibility, irritability, and sleeplessnes. Pt denies grandiosity, agitation, and talkativeness. Pt confirms anxiety. Pt denies recent panic attacks and paranoia Pt denies auditory, visual, or tactile hallucinations Pt smokes 2-3 cigarettes/day, 3 blunts/day of marijuana and 3-4 bags/day heroin. He denies using cocaine or any other drugs. Pt denies drinking EtOH. Psych Hx: Major depressive disorder diagnosed in 2017. Pt denies any traumatic history Family Psych Hx: Mother suffers from anxiety. Medical Hx: Unremarkable Legal Hx: Unremarkable Pt's plan is to go to treatment for heroin overuse. Consultations:: List each consultation separately and include: 1. Reason for request. 2. Findings. 3. Follow-up Summary of Hospital Course include:: 1. Description of specific treatment plan utilized for patients during their course of treatmen. 2. Summarize the time- course for resolution of acute symptoms and/or regressed behaviors. 3. Describe issues identified and worked on during hospitalization. 4. Describe medication utilized. 5. Describe medical problems identified and treated. 6. Reassessment of suicide risk Summary of Hospital Course: Pt is 28 years old, single, no kids, homeless and no kids. Pt is presenting for depression with suicidal ideation. Pt states that the depression has been going on for over 15 years. When asked why, pt replies that things are not well in his life and he feels like giving up. Pt confirms anhedonia intermittently, feelings of guilt, concentration problems, decreased appetite. Pt states that his suicidal ideation has been going on for four days, and the cause of his SI is drug addiction and being homeless. This is his third time with thoughts of suicide. The first time was last year, when he overdosed on Ambien and EtOH, but went to the hospital afterwards. The second time was 5 months ago when he overdosed on heroin, but his father brought him to the hospital. Pt denies any recent manic episodes. Pt confirms distractibility, irritability, and sleeplessnes. Pt denies grandiosity, agitation, and talkativeness. Pt confirms anxiety. Pt denies recent panic attacks and paranoia Pt denies auditory, visual, or tactile hallucinations Pt smokes 2-3 cigarettes/day, 3 blunts/day of marijuana and 3-4 bags/day heroin. He denies using cocaine or any other drugs. Pt denies drinking EtOH. Psych Hx: Major depressive disorder diagnosed in 2017. Pt denies any traumatic history Family Psych Hx: Mother suffers from anxiety. Medical Hx: Unremarkable Legal Hx: Unremarkable Pt's plan is to go to treatment for heroin overuse. - Diagnosis (1) Depression Current Visit: Yes Status: Acute (2) Drug abuse Current Visit: No Status: Acute - Final Diagnosis (DSM 5) Condition upon Discharge: STABLE Disposition: HOME/ ROUTINE Follow-up Treatment Plan: Major Depressive Disorder, Severe, w/out psychosis Opioid use severe Opioid withdrawal Alcohol use dis moderate Cannabis use dis moderate Desyrel and Catapres Paxil 20 mg Methaodne taper Ativan prn As need medications All risks, benefits and alternatives of the meds discussed, and the pt agreed and understood. Attend groups and activities Individual therapy daily Psychoeducation and support daily Encourage compliance with meds and after care Refer to outpatient program Teach healthy lifestyle methods, i.e. diet, exercise, meditation Smoking cessation and patch if needed Prescriptions/Medication Reconciliation: PARoxetine [Paxil] 20 mg PO DAILY #30 tab traZODone [Desyrel] 50 mg PO HS #30 tab
== END 2018-07-17 12:19 | disposition home or self-care (01) | DRG 885 ==
LOC: C.ER 06:38 → C.5E 10:14
PROVIDERS: ADMIT Psychiatry & Neurology Psychiatry; ATTEND Psychiatry & Neurology Psychiatry
PROC: GZHZZZZ Group Psychotherapy (ICD-10-PCS; principal; 2018-07-13)
PROC: GZ56ZZZ Individual Psychotherapy, Supportive (ICD-10-PCS; 2018-07-13)
DX: F32.2 Major depressive disorder, single episode, severe without psychotic features (principal); F11.23 Opioid dependence with withdrawal; R45.851 Suicidal ideations; F12.90 Cannabis use, unspecified, uncomplicated; F41.9 Anxiety disorder, unspecified; Z59.0 Homelessness; F17.219 Nicotine dependence, cigarettes, with unspecified nicotine-induced disorders

== ENCOUNTER 2018-07-29 21:36 | Emergency (ER) | payer MEDICAID, OTHER ==
[2018-07-29 21:47] VITALS: BP 119/68; PULSE 88; RESP 20; TEMP 98.2; O2SAT 98
--- NOTE | 2018-07-29 22:09 | C.PDOC ---
History Of Present Illness 28 year old female presents to the ED requesting substance detoxification from heroin. Patient reports last use of heroin was one hour ago. He denies any SI/HI, visual or auditory hallucinations, or any other physical complaints. Time Seen by Provider: 07/29/18 21:50 Chief Complaint (Nursing): Substance Abuse History Per: Patient History/Exam Limitations: no limitations Onset/Duration Of Symptoms: Days Current Symptoms Are (Timing): Still Present Suicide/Self Injury Attempted (Context): None Modifying Factor(s): Other (heroin) Associated Symptoms: denies: Suicidal Thoughts, Suicidal Plan Past Medical History Reviewed: Historical Data, Nursing Documentation, Vital Signs Vital Signs: Last Vital Signs Temp 98.2 F 07/29/18 21:45 Pulse 88 07/29/18 21:45 Resp 20 07/29/18 21:45 BP 119/68 07/29/18 21:45 Pulse Ox 98 07/29/18 21:45 - Medical History PMH: Depression Denies: Diabetes (Patient denied), Hepatitis (Patient denied), HIV (Patient d enied), HTN (Patient denied), Seizures (Patient denied), Sexually Transmitted Disease (Patient denied) Surgical History: No Surg Hx - [facility] Procedures DETOXIFICATION SERVICES FOR SUBSTANCE ABUSE TREATMENT (05/31/18) GROUP PONY ROUGHER FOR SUBSTANCE ABUSE TREATMENT, PSYCHOEDUCATION (05/31/18) GROUP PONY ROUGHER FOR SUBSTANCE ABUSE, COGNITIVE BEHAVIORAL (05/31/18) GROUP PSYCHOTHERAPY (07/13/18) INDIV PSYCHOTHERAPY FOR SUBSTANCE ABUSE TREATMENT, SUPPORT (05/31/18) INDIV PSYCHOTHERAPY FOR SUBSTANCE ABUSE, COGNITIV BEHAVIORAL (05/31/18) INDIV PSYCHOTHERAPY FOR SUBSTANCE ABUSE, PSYCHOEDUCATION (05/31/18) INDIVIDUAL PSYCHOTHERAPY, COGNITIVE-BEHAVIORAL (05/31/18) INDIVIDUAL PSYCHOTHERAPY, SUPPORTIVE (07/13/18) MEDICATION MANAGEMENT (12/06/17) Family History: States: No Known Family Hx - Social History Hx Alcohol Use: No Hx Substance Use: Yes (HEROIN) - Immunization History Hx Tetanus Toxoid Vaccination: No Hx Influenza Vaccination: No Hx Pneumococcal Vaccination: No Review Of Systems Except As Marked, All Systems Reviewed And Found Negative. Psych: Negative for: Depression, Suicidal ideation Physical Exam - Physical Exam Appears: Non-toxic Skin: Warm, Dry Head: Normacephalic Eye(s): bilateral: Normal Inspection Nose: Normal Neck: Normal ROM Chest: Symmetrical Cardiovascular: Rhythm Regular Respiratory: Normal Breath Sounds, No Rales, No Rhonchi, No Wheezing Gastrointestinal/Abdominal: Soft, No Tenderness Neurological/Psych: Oriented x3 Gait: Steady ED Course And Treatment O2 Sat by Pulse Oximetry: 98 (RA) Pulse Ox Interpretation: Normal Medical Decision Making Medical Decision Making: requesting detox. no beds avail. advise outp fu. Disposition - Disposition Disposition: HOME/ ROUTINE Disposition Time: 22:04 Condition: STABLE Additional Instructions: return toe r with worsening symptoms or concerns. please follow up with local detox centers Instructions: Drug Abuse and Drug Addiction (DC) Forms: [employer] (Turkmen) - Clinical Impression Clinical Impression: Drug abuse - Scribe Statement The provider has reviewed the documentation as recorded by the Scribe Lindsey Robertson All medical record entries made by the Scribe were at my direction and personally dictated by me. I have reviewed the chart and agree that the record accurately reflects my personal performance of the history, physical exam, medical decision making, and the department course for this patient. I have also personally directed, reviewed, and agree with the discharge instructions and disposition.
== END 2018-07-29 22:33 | disposition home or self-care (01) ==
LOC: C.ER 21:36
DX: F19.10 Other psychoactive substance abuse, uncomplicated (principal)

== ENCOUNTER 2018-08-06 00:19 | Emergency (ER) | payer MEDICAID ==
[2018-08-06 00:38] VITALS: TEMP 98.2; O2SAT 98
[2018-08-06 02:06] LABS: BASO # 0.1 K/uL (0.0-0.2); BASO % 0.8 % (0.0-2.0); EOS # 0.1 K/uL (0.0-0.7); HEMOGLOBIN 12.4 g/dL (12.0-18.0); LYMPH # 1.7 K/uL (1.0-4.3); LYMPH % 24.9 % (20.0-40.0); MEAN CELL VOLUME 92.4 fL (80.0-94.0); MEAN CORPUSCULAR HEMOGLOBIN 32.2 pg (27.0-31.0); MEAN CORPUSCULAR HGB CONC 34.9 g/dL (33.0-37.0); MEAN PLATELET VOLUME 7.9 fL (7.2-11.7); MONO # 0.8 K/uL (0.0-0.8); MONO % 11.4 % (0.0-10.0); NEUT % 60.9 % (50.0-75.0); NRBC % 0.1 % (0.0-2.0); RBC 3.85 Mil/uL (4.40-5.90); RED CELL DISTRIBUTION WIDTH 13.7 % (11.5-14.5); WHITE BLOOD COUNT 6.6 K/uL (4.8-10.8)
[2018-08-06 02:21] LABS: ALB/GLOB RATIO 1.5 (1.0-2.1); ALT/SGPT 35 U/L (21-72); AST/SGOT 45 U/L (17-59); BLOOD UREA NITROGEN 11 mg/dL (9-20); CALCIUM 8.7 mg/dl (8.6-10.4); GFR NON-AFRICAN AMERICAN > 60
--- NOTE | 2018-08-06 02:56 | C.PDOC ---
History Of Present Illness 28 year old male is brought to the ED by EMS for public intoxication. [place] Patient admits to injecting heroin tonight. Patient denies SI/HI, hallucinations, other drug abuse. Chief Complaint (Nursing): Substance Abuse History Per: Patient, EMS History/Exam Limitations: intoxication Onset/Duration Of Symptoms: Hrs Current Symptoms Are (Timing): Still Present Suicide/Self Injury Attempted (Context): None Modifying Factor(s): Other (heroin) Associated Symptoms: denies: Depression, Suicidal Thoughts, Suicidal Plan Recent travel outside of the [place]: No Additional History Per: Patient, EMS Past Medical History Reviewed: Historical Data, Nursing Documentation, Vital Signs Vital Signs: Last Vital Signs Temp 98.2 F 08/06/18 00:34 Pulse 74 08/06/18 00:34 Resp 12 08/06/18 00:34 BP 127/62 08/06/18 00:34 Pulse Ox 98 08/06/18 00:34 - Medical History PMH: Depression Denies: Diabetes (Patient denied), Hepatitis (Patient denied), HIV (Patient denied), HTN (Patient denied), Seizures (Patient denied), Sexually Transmitted Disease (Patient denied) Surgical History: No Surg Hx - [facility] Procedures DETOXIFICATION SERVICES FOR SUBSTANCE ABUSE TREATMENT (05/31/18) GROUP STORAGE FACILITY RENTAL CLERK FOR SUBSTANCE ABUSE TREATMENT, PSYCHOEDUCATION (05/31/18) GROUP STORAGE FACILITY RENTAL CLERK FOR SUBSTANCE ABUSE, COGNITIVE BEHAVIORAL (05/31/18) GROUP PSYCHOTHERAPY (07/13/18) INDIV PSYCHOTHERAPY FOR SUBSTANCE ABUSE TREATMENT, SUPPORT (05/31/18) INDIV PSYCHOTHERAPY FOR SUBSTANCE ABUSE, COGNITIV BEHAVIORAL (05/31/18) INDIV PSYCHOTHERAPY FOR SUBSTANCE ABUSE, PSYCHOEDUCATION (05/31/18) INDIVIDUAL PSYCHOTHERAPY, COGNITIVE-BEHAVIORAL (05/31/18) INDIVIDUAL PSYCHOTHERAPY, SUPPORTIVE (07/13/18) MEDICATION MANAGEMENT (12/06/17) Family History: States: Unknown Family Hx - Social History Hx Alcohol Use: No Hx Substance Use: Yes (HEROIN) - Immunization History Hx Tetanus Toxoid Vaccination: No Hx Influenza Vaccination: No Hx Pneumococcal Vaccination: No Review Of Systems Constitutional: Negative for: Fever, Chills Eyes: Negative for: Vision Change Respiratory: Negative for: Cough, Shortness of Breath Gastrointestinal: Negative for: Nausea, Vomiting Neurological: Negative for: Weakness, Numbness Psych: Negative for: Depression, Suicidal ideation Physical Exam - Physical Exam Appears: Non-toxic, No Acute Distress Skin: Normal Color, Warm, Dry Head: Atraumatic, Normacephalic Eye(s): bilateral: Normal Inspection Neck: Normal ROM, Supple Chest: Symmetrical Cardiovascular: Rhythm Regular Respiratory: Normal Breath Sounds, No Rales, No Rhonchi, No Wheezing Gastrointestinal/Abdominal: Soft, No Tenderness, No Guarding, No Rebound Extremity: Normal ROM, No Tenderness, No Swelling Neurological/Psych: Oriented x3, Normal Speech Gait: Steady ED Course And Treatment - Laboratory Results Result Diagrams: 08/06/18 02:03 08/06/18 02:03 O2 Sat by Pulse Oximetry: 98 (ON RA) Pulse Ox Interpretation: Normal Medical Decision Making Medical Decision Making: Plan: * Labs * UA Disposition Counseled Patient/Family Regarding: Diagnosis - Disposition Referrals: [facility] [Outside] Disposition: HOME/ ROUTINE Disposition Time: 03:22 Condition: STABLE Instructions: Drug Abuse and Drug Addiction (DC), Opioid Use Disorder Forms: [employer] [employer] [facility] (Serbian) - POA Present On Arrival: None - Clinical Impression Clinical Impression: Opioid abuse - Scribe Statement The provider has reviewed the documentation as recorded by the Scribe Vicente Mcadams All medical record entries made by the Scribe were at my direction and personally dictated by me. I have reviewed the chart and agree that the record accurately reflects my personal performance of the history, physical exam, medical decision making, and the department course for this patient. I have also personally directed, reviewed, and agree with the discharge instructions and disposition.
[2018-08-06 03:29] VITALS: BP 120/70; PULSE 80; RESP 14
== END 2018-08-06 03:29 | disposition home or self-care (01) ==
LOC: C.ER 00:19
DX: F11.10 Opioid abuse, uncomplicated (principal)

== ENCOUNTER 2018-08-18 05:28 | Inpatient (IN) | payer MEDICAID ==
--- NOTE | 2018-08-18 06:11 | C.PDOC ---
Addendum entered and electronically signed by Laura Molina DO 08/18/18 07:25: Addendum Addendum: 08/18/18 07:25 Patient medically cleared, pending crisis evaluation. Original Note: History Of Present Illness 28 year old male presents to the ED for evaluation of depression and suicidal ideation. Patient reports he has been thinking about overdosing with his grandmother's pills. Patient denies HI, hallucinations, CP, SOB, palpitations, injury, fall, trauma. Time Seen by Provider: 08/18/18 06:10 Chief Complaint (Nursing): Psychiatric Evaluation History Per: Patient History/Exam Limitations: no limitations Onset/Duration Of Symptoms: Days Current Symptoms Are (Timing): Still Present Suicide/Self Injury Attempted (Context): Ingestion Modifying Factor(s): None Associated Symptoms: Depression, Suicidal Thoughts, Suicidal Plan Recent travel outside of the [place]: No Additional History Per: Patient Past Medical History Reviewed: Historical Data, Nursing Documentation, Vital Signs Vital Signs: Last Vital Signs Temp 98.9 F 08/18/18 05:48 Pulse 66 08/18/18 05:48 Resp 16 08/18/18 05:48 BP 142/84 08/18/18 05:48 Pulse Ox 999 H 08/18/18 05:48 - Medical History PMH: Depression Denies: Diabetes (Patient denied), Hepatitis (Patient denied), HIV, HTN (Patient denied), Seizures (Patient denied), Sexually Transmitted Disease (Cari ent denied) Surgical History: No Surg Hx - [facility] Procedures DETOXIFICATION SERVICES FOR SUBSTANCE ABUSE TREATMENT (05/31/18) GROUP WILDLAND FIRE FIGHTER SPECIALIST FOR SUBSTANCE ABUSE TREATMENT, PSYCHOEDUCATION (05/31/18) GROUP WILDLAND FIRE FIGHTER SPECIALIST FOR SUBSTANCE ABUSE, COGNITIVE BEHAVIORAL (05/31/18) GROUP PSYCHOTHERAPY (07/13/18) INDIV PSYCHOTHERAPY FOR SUBSTANCE ABUSE TREATMENT, SUPPORT (05/31/18) INDIV PSYCHOTHERAPY FOR SUBSTANCE ABUSE, COGNITIV BEHAVIORAL (05/31/18) INDIV PSYCHOTHERAPY FOR SUBSTANCE ABUSE, PSYCHOEDUCATION (05/31/18) INDIVIDUAL PSYCHOTHERAPY, COGNITIVE-BEHAVIORAL (05/31/18) INDIVIDUAL PSYCHOTHERAPY, SUPPORTIVE (07/13/18) MEDICATION MANAGEMENT (12/06/17) Family History: States: Unknown Family Hx - Social History Hx Alcohol Use: No Hx Substance Use: Yes (HEROIN) - Immunization History Hx Tetanus Toxoid Vaccination: No Hx Influenza Vaccination: No Hx Pneumococcal Vaccination: No Review Of Systems Constitutional: Negative for: Fever, Chills Cardiovascular: Negative for: Chest Pain Respiratory: Negative for: Shortness of Breath Gastrointestinal: Negative for: Nausea, Vomiting Neurological: Negative for: Weakness, Numbness Psych: Positive for: Depression, Suicidal ideation Physical Exam - Physical Exam Appears: Non-toxic, No Acute Distress Skin: Warm, Dry Head: Normacephalic Eye(s): bilateral: Normal Inspection Oral Mucosa: Moist Neck: Supple Chest: Symmetrical Cardiovascular: Rhythm Regular Respiratory: No Rales, No Rhonchi, No Wheezing Gastrointestinal/Abdominal: Soft, No Tenderness, No Guarding, No Rebound Extremity: Bilateral: Atraumatic, Normal Color And Temperature, Normal ROM Neurological/Psych: Oriented x3, Normal Speech, Normal Cognition Gait: Steady ED Course And Treatment - Laboratory Results Result Diagrams: 08/18/18 06:24 O2 Sat by Pulse Oximetry: 99 (ON RA) Pulse Ox Interpretation: Normal Progress Note: Plan: - Labs. - UA. - 1:1 obs. - Crisis eval Disposition Counseled Patient/Family Regarding: Studies Performed, Diagnosis - Disposition Disposition Time: 06:11 Condition: FAIR Forms: [employer] (Chinese) - Clinical Impression Clinical Impression: Depression - Scribe Statement The provider has reviewed the documentation as recorded by the Scribe Vicente Mcadams All medical record entries made by the Scribe were at my direction and personally dictated by me. I have reviewed the chart and agree that the record accurately reflects my personal performance of the history, physical exam, medical decision making, and the department course for this patient. I have also personally directed, reviewed, and agree with the discharge instructions and d isposition. Physician Patient Turnover Patient Signed Over To: Laura Molina
[2018-08-18 06:26] LABS: BASO # 0.1 K/uL (0.0-0.2); BASO % 1.2 % (0.0-2.0); EOS # 0.2 K/uL (0.0-0.7); LYMPH # 1.9 K/uL (1.0-4.3); LYMPH % 28.6 % (20.0-40.0); MEAN CELL VOLUME 93.3 fL (80.0-94.0); MEAN CORPUSCULAR HEMOGLOBIN 32.1 pg (27.0-31.0); MEAN CORPUSCULAR HGB CONC 34.4 g/dL (33.0-37.0); MONO # 0.6 K/uL (0.0-0.8); MONO % 9.4 % (0.0-10.0); NEUT # 3.8 K/uL (1.8-7.0); NEUT % 57.8 % (50.0-75.0); RBC 4.06 Mil/uL (4.40-5.90); WHITE BLOOD COUNT 6.6 K/uL (4.8-10.8)
[2018-08-18 06:35] LABS: SQUAMOUS EPITHIAL < 1 /hpf (0-5); URINE BILIRUBIN NEGATIVE (NEGATIVE); URINE BLOOD NEGATIVE (NEGATIVE); URINE CALCIUM OXALATE CRYSTALS OCC /hpf (<OCC); URINE CLARITY Clear (Clear); URINE COLOR Yellow (YELLOW); URINE GLUCOSE (UA) NORMAL (Normal); URINE LEUKOCYTE ESTERASE NEG Leu/uL (Negative); URINE PROTEIN NEGATIVE (NEGATIVE)
[2018-08-18 06:47] LABS: BARBITURATES, UR NEGATIVE (NEGATIVE); BENZODIAZEPINES, UR NEGATIVE (NEGATIVE); PHENCYCLIDINE, UR NEGATIVE (NEGATIVE)
[2018-08-18 06:52] LABS: ALB/GLOB RATIO 1.5 (1.0-2.1); ALBUMIN 4.1 g/dL (3.5-5.0); ALT/SGPT 38 U/L (21-72); AST/SGOT 42 U/L (17-59); BLOOD UREA NITROGEN 9 mg/dL (9-20); CALCIUM 9.2 mg/dl (8.6-10.4); GFR NON-AFRICAN AMERICAN > 60
[2018-08-18 06:55] LABS: ACETAMINOPHEN < 10.0 ug/mL (10.0-30.0); SALICYLATE < 1.0 mg/dL 1
[2018-08-18 06:57] LABS: OPIATES, UR POSITIVE (NEGATIVE)
--- NOTE | 2018-08-18 09:41 | PCM.BM ---
<Tonya Romero - Last Filed: 08/18/18 09:40> Treatment Plan Problems - Problems identified on initial assessmt potential for opiate withdrawals Date Initiated: 08/18/18 Assessment reference: NA Status: Active Treatment assets and liabiliti Patient Assests: adapts well, cooperative, ADL independent, physically healthy, negotiates basic needs, cognitively intact, good interpersonal skills Patient Liabilities: substance abuse, other - Milieu Protocol Maintain good personal hygiene: daily Encourage regular showers, daily Remind patient to perform daily oral care, daily Assist patient to perform ADL's Conduct patient checks and document Observation sheet: Q15 minutes Maintain personal safety: every shift Educate patient to report safety concerns to staff, every shift Monitor environment for contraband/sharps Medication safety: Monitor for expected outcome, potential side effects: every shift, Assess barriers to learning: every shift, Assess readiness for medication education: every shift <Jamie Vazquez - Last Filed: 08/18/18 13:42> - Diagnosis (1) Opioid abuse Status: Acute Interventions: 08/18/18 13:42 * Assess 7x/week regarding severity of withdrawal * Educate regarding risks, benefits, side effects and alternatives of medications * Use Motivational Interviewing for abstinence * Use CBT for relapse prevention * Medication management for withdrawal symptoms * Encourage medication assisted treatment *
[2018-08-18] MEDS ORDERED: Aluminum Hydroxide/Magnesium Hydroxide Susp (30 mL) PO PRN (11:50)
--- NOTE | 2018-08-18 12:46 | PCM.PSYCH ---
Initial Psychiatric Evaluation - Initial Psychiatric Evaluation Type of Admission: Voluntary Legal Status: Capacity Chief Complaint (in patient's own words): "Heroin" History of Present Illness and Precipitating Events: Pt is 28 years old AAM, single, no kids, homeless and unemployed. Pt is presenting for heroin detox. Pt smokes 2-3 cigarettes/day, 5-6 blunts/ every other day of marijuana and 6-7 bags/day heroin. He denies using cocaine or any other drugs. Pt denies drinking EtOH. He has OD'ed on heroin and claims he couldn't stop on his own b/c of his depression, and poor support/homelessness. Pt confirms anxiety and depression. Pt denies panic attacks and paranoia and he is not suicidal or homicidal. Mood is very low and anxious. And he has thought about suicide when his GM recently Psych Hx: Major depressive disorder diagnosed in 2017. Pt denies any traumatic history. He was hospitalized in our psych unit several times and is non- compliant with meds and referrals Family Psych Hx: Mother suffers from anxiety. Medical Hx: Unremarkable Current Medications: Active Medications Generic Name Dose Route Start Last Admin Trade Name Freq PRN Reason Stop Dose Admin Al Hydrox/Mg Hydrox/Simethicone 30 ml 08/18/18 11:50 Maalox 30 Ml PO TID PRN Indigestion / Heartburn Clonidine HCl 0.1 mg 08/18/18 11:50 Catapres PO Q8 PRN COWS Score More or Equal to 5 Hydroxyzine HCl 50 mg 08/18/18 11:54 Atarax PO Q6H PRN Anxiety Ibuprofen 600 mg 08/18/18 11:54 Motrin Tab PO Q6H PRN Pain, moderate (4-7) Loperamide HCl 2 mg 08/18/18 11:50 Imodium PO Q8 PRN Diarrhea Methadone HCl 20 mg 08/18/18 16:00 Methadone PO 08/18/18 16:01 ONCE ONE Ondansetron HCl 4 mg 08/18/18 11:50 Zofran Tab PO Q8 PRN Nausea/Vomiting Trazodone HCl 100 mg 08/18/18 22:00 Desyrel PO HS PRN Insomnia Past Psychiatric History - Past Psychiatric History Previous Treatment History: Inpatient Pertinent Medical Hx (Current Medical&Sleep Prob, Allergies): Allergies Allergy/AdvReac Type Severity Reaction Status Date / Time No Known Allergies Allergy Verified 08/18/18 05:55 traZODone [trazODONE HYDROCHLORIDE] 50 mg PO HS 08/18/18 Review of Systems - Neurological Neurological: UNREMARKABLE - Psychiatric Psychiatric: Abnormal Sleep Pattern, Anxiety, Depression, Difficulty Concentrating, Irritability. absent: Hallucinations, Homicidal Ideation, Paranoia, Suicidal Ideation Mental Status Examination - Personal Presentation Personal Presentation: Looks older than stated age - Affect Affect: Blunted - Motor Activity Motor Activity: Calm - Reliability in Providing Information Reliability in Providing Information: Fair - Speech Speech: Organized - Mood Mood: Depressed, Anxious - Formal Thought Process Formal Thought Process: No Impairment - Cognitive Functions Orientation: Person, Place, Situation, Time Sensorium: Drowsy Attention/Concentration: Easily distracted Estimate of Intelligence: Average Judgement: Intact, as evidence by: Insight regarding need for hospitalization Memory: Recent intact, as evidence by: Ability to recall events of the day, Remote intact, as evidenced by: Abilit to recall sig. life events - Risk Risk: Withdrawal, Diminished functioning - Strength & Assets Inventory Strength & Assets Inventory: Cooperative - Limitations Limitations: Living alone DSM 5 DX - DSM 5 DSM 5 Diagnosis: Opioid withdrawal Major Depressive Disorder, recurrent, moderate Opioid use severe Cannabis use d/o severe - Recommended/Plan of Treatment Treatment Recommendations and Plan of Treatment: Taper with methadone Remeron for depression Gabapentin for augmentation As needed medications All risks, benefits and alternatives of the meds discussed, and the pt agreed and understood. Attend groups and activities Supportive therapy and psychoeducation OR for abstinence CBT for relapse prevention Encourage MAT Refer to rehab or IOP, and self-help groups Teach healthy lifestyle methods, i.e. diet, exercise, meditation Smoking cessation with OR Nicotine patch if needed 34 min Projected ELOS: 5 days
--- NOTE | 2018-08-19 12:45 | PCM.PYCHPN ---
Psychiatric Progress Note - Psychiatric Progress Note Patient seen today, length of contact: 16 minutes Patient Chief Complaint: "Nervous" Problems Identified/Issues Discussed: The pt is seen, chart reviewed, case discussed with staff. Support and psychoeducation given, CBT and FL used briefly No new symptoms reported, improving slowly and needs more time No SEs from medications, risks discussed. After care discussed Medication Change: Yes (Detox changes daily) Medical Record Reviewed: Yes Mental Status Examination - Cognitive Function Orientation: Person, Place, Situation, Time Memory: Intact Attention: Poor Concentration: Poor Association: WNL Fund of Knowledge: Poor - Mood Mood: Depressed, Anxious - Affect Affect: Blunted - Speech Speech: Appropriate - Formal Thought Process Formal Thought Process: No Impairment - Suicidal Ideation Suicidal Ideation: No - Homicidal Ideation Homicidal Ideation: No Goal/Treatment Plan - Goal/Treatment Plan Need for Continued Stay: Discharge may exacerbated symptoms, Severe functional impairment Progress Toward Problem(s) and Goals/Treatment Plan: Taper with methadone Remeron for depression Gabapentin for augmentation As needed medications All risks, benefits and alternatives of the meds discussed, and the pt agreed and understood. Attend groups and activities Supportive therapy and psychoeducation FL for abstinence CBT for relapse prevention Encourage MAT Refer to rehab or IOP, and self-help groups Teach healthy lifestyle methods, i.e. diet, exercise, meditation Smoking cessation with FL Nicotine patch if needed Estimated Date of D/C: 08/21/18
--- NOTE | 2018-08-20 14:24 | PCM.PYCHPN ---
Psychiatric Progress Note - Psychiatric Progress Note Patient seen today, length of contact: 16 minutes Patient Chief Complaint: "Not OK" Problems Identified/Issues Discussed: The pt is seen, chart reviewed, case discussed with staff. Support given, CBT and HI used briefly No new symptoms reported, improving slowly and needs more time No SEs from medications, risks discussed. After care discussed Medication Change: Yes (Detox changes daily) Medical Record Reviewed: Yes Mental Status Examination - Cognitive Function Orientation: Person, Place, Situation, Time Memory: Intact Attention: Poor Concentration: Poor Association: WNL Fund of Knowledge: Poor - Mood Mood: Depressed, Anxious - Affect Affect: Blunted - Speech Speech: Appropriate - Formal Thought Process Formal Thought Process: No Impairment - Suicidal Ideation Suicidal Ideation: No - Homicidal Ideation Homicidal Ideation: No Goal/Treatment Plan - Goal/Treatment Plan Need for Continued Stay: Discharge may exacerbated symptoms, Severe functional impairment Progress Toward Problem(s) and Goals/Treatment Plan: Taper with methadone Remeron for depression Gabapentin for augmentation As needed medications All risks, benefits and alternatives of the meds discussed, and the pt agreed and understood. Attend groups and activities Supportive therapy and psychoeducation HI for abstinence CBT for relapse prevention Encourage MAT Refer to rehab or IOP, and self-help groups Teach healthy lifestyle methods, i.e. diet, exercise, meditation Smoking cessation with HI Nicotine patch if needed Estimated Date of D/C: 08/21/18
--- NOTE | 2018-08-21 08:56 | PCM.PYCHDC ---
Mental Status Examination - Mental Status Examination Orientation: Person, Place, Situation, Time Memory: Intact Mood: Anxious Affect: Constricted Speech: Appropriate Attention: WNL Concentration: WNL Association: WNL Fund of Knowledge: WNL Formal Thought Process: No Impairment Suicidal Ideation: No Current Homicidal Ideation?: No Discharge Summary - Discharge Note Reason for Hospitalization: Heroin detox Consultations:: List each consultation separately and include: 1. Reason for request. 2. Findings. 3. Follow-up Summary of Hospital Course include:: 1. Description of specific treatment plan utilized for patients during their course of treatmen. 2. Summarize the time- course for resolution of acute symptoms and/or regressed behaviors. 3. Describe issues identified and worked on during hospitalization. 4. Describe medication utilized. 5. Describe medical problems identified and treated. 6. Reassessment of suicide risk Summary of Hospital Course: On Admission: Pt is 28 years old AAM, single, no kids, homeless and unemployed. Pt is presenting for heroin detox. Pt smokes 2-3 cigarettes/day, 5-6 blunts/ every other day of marijuana and 6-7 bags/day heroin. He denies using cocaine or any other drugs. Pt denies drinking EtOH. He has OD'ed on heroin and claims he couldn't stop on his own b/c of his depression, and poor support/homelessness. Pt confirms anxiety and depression. Pt denies panic attacks and paranoia and he is not suicidal or homicidal. Mood is very low and anxious. And he has thought about suicide when his GM recently Psych Hx: Major depressive disorder diagnosed in 2017. Pt denies any traumatic history. He was hospitalized in our psych unit several times and is non- compliant with meds and referrals Family Psych Hx: Mother suffers from anxiety. Medical Hx: Unremarkable Hospital course: The pt was admitted and started on treatment with psychotherapy, support, psychoeducation and medications. OR and CBT used. The pt attended groups and activities, as well as milieu therapy. All the risks and benefits of medications are discussed and the patient understood and agreed. The pt improved with the treatments provided. After care discussed with the patient. He went to [facility] - Final Diagnosis (DSM 5) Condition upon Discharge: IMPROVED DSM 5: Opioid withdrawal Major Depressive Disorder, recurrent, moderate Opioid use severe Cannabis use d/o severe Disposition: REHAB FACILITY/REHAB UNIT Follow-up Treatment Plan: Continue below medications after discharge. Follow after care plan as discussed. Use relapse prevention skills Return to ER or call 911 if suicidal, homicidal or symptoms relapse. Stay away from stress, alcohol and drugs. See primary doctor regularly and get labs. Prescriptions/Medication Reconciliation: Gabapentin [Neurontin] 300 mg PO BID #60 cap Naproxen [Anaprox DS] 550 mg PO DAILY #30 tab
[2018-08-21 09:01] VITALS: BP 126/70; PULSE 87; RESP 19; TEMP 98.5; O2SAT 99
[2018-08-21] MEDS ORDERED: Naproxen 550 mg Tab PO SCH (10:00)
== END 2018-08-21 09:45 | disposition home or self-care (01) | DRG 751 ==
LOC: C.ER 05:28 → C.7D 08:36
PROVIDERS: ADMIT Psychiatry & Neurology Psychiatry; ATTEND Psychiatry & Neurology Psychiatry
PROC: GZHZZZZ Group Psychotherapy (ICD-10-PCS; principal; 2018-08-18)
PROC: HZ2ZZZZ Detoxification Services for Substance Abuse Treatment (ICD-10-PCS; 2018-08-18)
PROC: HZ52ZZZ Individual Psychotherapy for Substance Abuse Treatment, Cognitive-Behavioral (ICD-10-PCS; 2018-08-18)
PROC: HZ59ZZZ Individual Psychotherapy for Substance Abuse Treatment, Supportive (ICD-10-PCS; 2018-08-18)
PROC: HZ56ZZZ Individual Psychotherapy for Substance Abuse Treatment, Psychoeducation (ICD-10-PCS; 2018-08-18)
PROC: HZ42ZZZ Group Counseling for Substance Abuse Treatment, Cognitive-Behavioral (ICD-10-PCS; 2018-08-18)
PROC: HZ46ZZZ Group Counseling for Substance Abuse Treatment, Psychoeducation (ICD-10-PCS; 2018-08-18)
PROC: GZ58ZZZ Individual Psychotherapy, Cognitive-Behavioral (ICD-10-PCS; 2018-08-18)
PROC: GZ56ZZZ Individual Psychotherapy, Supportive (ICD-10-PCS; 2018-08-18)
DX: F33.1 Major depressive disorder, recurrent, moderate (principal); R45.851 Suicidal ideations; Z91.14 Patient's other noncompliance with medication regimen; F11.23 Opioid dependence with withdrawal; F17.210 Nicotine dependence, cigarettes, uncomplicated; F12.20 Cannabis dependence, uncomplicated; Z59.0 Homelessness

== ENCOUNTER 2018-08-24 14:18 | Emergency (ER) | payer MEDICAID ==
[2018-08-24 14:34] VITALS: BP 143/85; PULSE 91; RESP 18; TEMP 98.4; O2SAT 99
--- NOTE | 2018-08-24 15:28 | RAD ---
PROCEDURE: Right Hand Radiographs. HISTORY: hand injury, pain COMPARISON: None. FINDINGS: BONES: Bone alignment is normal. There is mild periarticular bone demineralization. There is no acute displaced fracture or bone destruction. JOINTS: Normal. SOFT TISSUES: Normal. OTHER FINDINGS: None. IMPRESSION: No acute fracture or dislocation.
--- NOTE | 2018-08-24 15:40 | C.PDOC ---
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 Patient denies having weakness and numbness. Time Seen by Provider: 08/24/18 14:34 Chief Complaint (Nursing): Finger,Hand,&Wrist History Per: Patient History/Exam Limitations: no limitations Onset/Duration Of Symptoms: Hrs Current Symptoms Are (Timing): Still Present Severity: Moderate Past Medical History Reviewed: Historical Data, Nursing Documentation, Vital Signs Vital Signs: Last Vital Signs Temp 98.4 F 08/24/18 14:28 Pulse 91 H 08/24/18 14:28 Resp 18 08/24/18 14:28 BP 143/85 08/24/18 14:28 Pulse Ox 99 08/24/18 14:28 - Medical History PMH: Depression Denies: Diabetes (Patient denied), Hepatitis (Patient denied), HIV, HTN (Patient denied), Seizures (Patient denied), Sexually Transmitted Disease (Patient denied) Surgical History: No Surg Hx - [facility] Procedures DETOXIFICATION SERVICES FOR SUBSTANCE ABUSE TREATMENT (05/31/18) GROUP SNOW BLOWER FOR SUBSTANCE ABUSE TREATMENT, PSYCHOEDUCATION (05/31/18) GROUP SNOW BLOWER FOR SUBSTANCE ABUSE, COGNITIVE BEHAVIORAL (05/31/18) GROUP PSYCHOTHERAPY (07/13/18) INDIV PSYCHOTHERAPY FOR SUBSTANCE ABUSE TREATMENT, SUPPORT (05/31/18) INDIV PSYCHOTHERAPY FOR SUBSTANCE ABUSE, COGNITIV BEHAVIORAL (05/31/18) INDIV PSYCHOTHERAPY FOR SUBSTANCE ABUSE, PSYCHOEDUCATION (05/31/18) INDIVIDUAL PSYCHOTHERAPY, COGNITIVE-BEHAVIORAL (05/31/18) INDIVIDUAL PSYCHOTHERAPY, SUPPORTIVE (07/13/18) MEDICATION MANAGEMENT (12/06/17) Family History: States: No Known Family Hx - Social History Hx Alcohol Use: No Hx Substance Use: Yes (denies) - Immunization History Hx Tetanus Toxoid Vaccination: Yes Hx Influenza Vaccination: No Hx Pneumococcal Vaccination: No Review Of Systems Except As Marked, All Systems Reviewed And Found Negative. Musculoskeletal: Positive for: Hand Pain (right hand pain) Neurological: Negative for: Weakness, Numbness Physical Exam - Physical Exam Appears: Non-toxic, No Acute Distress Skin: Normal Color, Warm, Dry Head: Atraumatic, Normacephalic Eye(s): bilateral: Normal Inspection Nose: Normal Oral Mucosa: Moist Neck: Supple Chest: Symmetrical Extremity: Normal ROM, Tenderness (tenderness to 2nd and 3rd MCP joints of right hand, tenderness to 2nd and 3rd metacarpal bones of right hand), Swelling (swelling to 2nd and 3rd MCP joints of right hand, swelling to 2nd and 3rd metacarpal bones of right hand) Pulses: Left Radial: Normal, Right Radial: Normal Neurological/Psych: Oriented x3, Normal Speech Gait: Steady ED Course And Treatment O2 Sat by Pulse Oximetry: 99 (RA) Pulse Ox Interpretation: Normal - Other Rad X-Ray-Right Hand X-Ray: Viewed By Me, Read By Radiologist Interpretation: PROCEDURE: Right Hand Radiographs. HISTORY: hand injury, pain. COMPARISON: None. FINDINGS: BONES: Bone alignment is normal. There is mild periarticular bone demineralization. There is no acute displaced fracture or bone destruction. JOINTS: Normal. SOFT TISSUES: Normal. OTHER FINDINGS: None. IMPRESSION: No acute fracture or dislocation. Medical Decision Making Medical Decision Making: Plan: --Motrin PO --X-Ray-Right Hand Updates: X-Ray- Right Hand is negative for fracture or dislocation. Velcro wrist splint was applied to the arm. Patient has been discharged and instructed to follow up with doctor in 2 days. Disposition - Disposition Referrals: Cristhian Matute MD [Staff Provider] - [facility] [Outside] Disposition: HOME/ ROUTINE Disposition Time: 16:06 Condition: STABLE Additional Instructions: Follow up with the medical doctor within 1-2 days, Return if worsened. Prescriptions: Acetaminophen [Tylenol] 325 mg PO Q6 PRN #30 tab PRN Reason: Pain, Mild (1-3) Instructions: Contusion (DC) Forms: [employer] [facility] [employer] (Pashto), Work Excuse - Clinical Impression Clinical Impression: Hand contusion - PA / [employer] G[employer]TER / Resident Statement MD/DO has reviewed & agrees with the documentation as recorded. - Scribe Statement The provider has reviewed the documentation as recorded by the Mollyibe Brad Holloway All medical record entries made by the Scribe were at my direction and personally dictated by me. I have reviewed the chart and agree that the record accurately reflects my personal performance of the history, physical exam, medical decision making, and the department course for this patient. I have also personally directed, reviewed, and agree with the discharge instructions and disposition.
== END 2018-08-24 16:20 | disposition home or self-care (01) ==
LOC: C.ER 14:18
DX: S60.221A Contusion of right hand, initial encounter (principal); W22.8XXA Striking against or struck by other objects, initial encounter; Y92.89 Other specified places as the place of occurrence of the external cause; Y99.0 Civilian activity done for income or pay